=== PATIENT | female | born 1940 | race Caucasian/White ===

== ENCOUNTER → 2016-10-07 | Outpatient (CLI) | payer MEDICARE ==
[2016-10-07 11:03] LABS: Anion Gap 14 mmol/L; Calcium 9.2 mg/dL (8.4-10.2); Carbon Dioxide 20 mmol/L (22-30); Chloride 110 mmol/L (98-107); Cholesterol 143 mg/dL (<200); Glucose 97 mg/dL (74-99); HDL Cholesterol 51 mg/dL (40-60); Non-African American GFR(MDRD) >60 (>60 ml/min/1.73 sqM); Sodium 144 mmol/L (137-145); Total Bilirubin 0.9 mg/dL (0.2-1.3); Triglycerides 148 mg/dL (<150)
[2016-10-07 11:32] LABS: AST 41 U/L (14-36); Blood Urea Nitrogen 18 mg/dL (7-17); Potassium 4.6 mmol/L (3.5-5.1); Total Protein 7.7 g/dL (6.3-8.2)
[2016-10-07 11:33] LABS: ALT 27 U/L (9-52); Alkaline Phosphatase 60 U/L (38-126)
[2016-10-07 11:48] LABS: Hemoglobin A1C 6.1 % (4.2-6.1)
== END | disposition home or self-care (01) ==
LOC: LABWHC1 08:45
PROVIDERS: ATTEND Internal Medicine Interventional Cardiology
DX: E78.2 Mixed hyperlipidemia (principal); E11.9 Type 2 diabetes mellitus without complications
CPT/HCPCS: 36415; 80053; 80061; 82043; 83036

== ENCOUNTER → 2017-03-09 | Outpatient (CLI) | payer MEDICARE ==
[2017-03-09 10:02] LABS: ALT 32 U/L (9-52); AST 23 U/L (14-36); Cholesterol 156 mg/dL (<200); HDL Cholesterol 48 mg/dL (40-60)
== END | disposition home or self-care (01) ==
LOC: LABWHC1 08:38
PROVIDERS: ATTEND Internal Medicine Interventional Cardiology
DX: E78.2 Mixed hyperlipidemia (principal)
CPT/HCPCS: 36415; 80061; 84450; 84460

== ENCOUNTER → 2017-10-05 | Outpatient (CLI) | payer MEDICARE ==
[2017-10-05 10:48] LABS: ALT 22 U/L (9-52); AST 27 U/L (14-36); Cholesterol 140 mg/dL (<200); HDL Cholesterol 43 mg/dL (40-60); LDL Cholesterol,Calculated 65 mg/dL (0-99); Triglycerides 158 mg/dL (<150)
== END | disposition home or self-care (01) ==
LOC: LABWHC1 09:50
PROVIDERS: ATTEND Internal Medicine Interventional Cardiology
DX: E78.2 Mixed hyperlipidemia (principal)
CPT/HCPCS: 36415; 80061; 84450; 84460

== ENCOUNTER → 2017-10-26 | Outpatient (CLI) | payer MEDICARE ==
--- NOTE | 2017-10-27 13:30 | MM ---
Reason for exam: screening (asymptomatic). Last mammogram was performed 1 year and 6 months ago. History: Patient is postmenopausal. Family history of premenopausal breast cancer in mother at age 30. Stereotactic core biopsy of the right breast, February 20, 2004. Excisional biopsy of the right breast, 2003. Took estrogen beginning at age 37. Physical Findings: A clinical breast exam by your physician is recommended on an annual basis and results should be correlated with mammographic findings. MG 3D Screening Mammo W/Cad Bilateral CC and MLO view(s) were taken. Prior study comparison: April 23, 2016, bilateral MG screening mammo w CAD. April 21, 2015, bilateral MG screening mammo w CAD. The breast tissue is heterogeneously dense. This may lower the sensitivity of mammography. There is chronic nodularity bilaterally. No suspicious abnormality. Right breast post operative change. No significant changes when compared with prior studies. ASSESSMENT: Benign, BI-RAD 2 RECOMMENDATION: Routine screening mammogram of both breasts in 1 year. Manage on a clinical basis. Clinical management of nonfocal breast pain and size asymmetry if there is a focal abnormality diagnostic exam and ultrasound are recommended.
== END | disposition home or self-care (01) ==
LOC: RADMAMWWP 14:27
PROVIDERS: ATTEND Internal Medicine
DX: Z12.31 Encounter for screening mammogram for malignant neoplasm of breast (principal)
CPT/HCPCS: 77063; 77067

== ENCOUNTER → 2018-02-24 | Outpatient (CLI) | payer MEDICARE ==
[2018-02-24 12:04] LABS: Albumin 4.2 g/dL (3.5-5.0); Calcium 9.8 mg/dL (8.4-10.2); Potassium 4.8 mmol/L (3.5-5.1); Total Bilirubin 0.5 mg/dL (0.2-1.3); Total Protein 7.2 g/dL (6.3-8.2)
== END ==
LOC: LABWHC1 09:41
PROVIDERS: ATTEND Internal Medicine Interventional Cardiology
DX: E78.2 Mixed hyperlipidemia (principal)
CPT/HCPCS: 36415; 80053; 80061

== ENCOUNTER → 2018-10-04 | Outpatient (CLI) | payer MEDICARE ==
[2018-10-04 15:55] LABS: LDL Cholesterol,Calculated 57.8 mg/dL (0.0-131.0); VLDL Calculation 22.2 mg/dL (5.00-40.00)
== END | disposition home or self-care (01) ==
LOC: LABWHC1 09:12
PROVIDERS: ATTEND Internal Medicine Interventional Cardiology
DX: E78.2 Mixed hyperlipidemia (principal)
CPT/HCPCS: 36415; 80061; 84450; 84460

== ENCOUNTER 2018-11-02 12:40 | Day surgery (SDC) | payer MEDICARE ==
[2018-11-01 09:58] VITALS: BMI 32.1
[~2018-11-02 12:40] MED LIST: LACTATED RINGERS 1,000 ML IV SCH; LIDOCAINE 1% 20 ML VIAL (10MG/ML) FOR IV START INTRADERMA PRN
[2018-11-02] MEDS ORDERED: LIDOCAINE 1% INJ 10MG/ML (20 ML MDV) ONE (14:00)
[2018-11-02] MEDS ORDERED: PROPOFOL 10 MG/ML 20 ML VIAL IV ONE (14:00)
--- NOTE | 2018-11-02 14:38 | P.PCN ---
Date of Procedure: 11/02/18 Description of Procedure: BRIEF HISTORY: Patient is a 78-year-old pleasant female scheduled for an elective colonoscopy as a part of positive stool testing performed and screening. The patient reports that her last colonoscopy was approximately 15 years ago at which time polyps were removed. She denies any hematochezia or melena. She does report a family history of colon cancer in her grandfather. She does report loose stool which occurred a few months ago and was treated with [id number] Imodium with improvement in her symptoms. PROCEDURE PERFORMED: Colonoscopy with biopsy. PREOPERATIVE DIAGNOSIS: Change in bowel habits, diarrhea, last colonoscopy a few years ago, personal history of colon polyps. ESTIMATED BLOOD LOSS: Minimal. IV sedation per Anesthesia. PROCEDURE: After informed consent was obtained, the patient, was brought into the endoscopy unit. IV sedation was administered by Anesthesia under continuous monitoring. Digital rectal examination was normal. Initially the Olympus CF-190 flexible video colonoscope was then inserted in the rectum, gradually advanced into the cecum without any difficulty. Careful examination was performed as the scope was gradually being withdrawn. The terminal ileum was intubated and appeared normal. Ileocecal valve and the appendiceal orifice were visualized and appeared normal. Prep was excellent. Mucosa of the cecum, ascending colon, transverse colon, descending colon, sigmoid colon, and rectum appeared normal, with random biopsies taken of the right colon, transverse colon and left colon in the setting of recent diarrhea. Left-sided diverticulosis was noted and mild internal hemorrhoids were seen. Retroflexion was performed in the rectum and no lesions were seen. The patient tolerated the procedure well. IMPRESSION: Normal-appearing colon from rectum to cecum, with random biopsies of the right colon, left colon and transverse colon in the setting of recent diarrhea. Diverticulosis. Mild internal hemorrhoids. RECOMMENDATIONS: Findings of this examination were discussed with the patient her . Okay to resume diet. Would recommend high-fiber diet in the setting of diverticulosis. Await pathology from biopsies. Recommendation is for repeat colonoscopy in 5 years in the setting of history of colonic polyps.
[2018-11-02 14:45] VITALS: RESP 16
[2018-11-02 15:03] VITALS: BP 124/76; PULSE 66
== END 2018-11-02 15:05 | disposition home or self-care (01) ==
LOC: ORWHC2ENDO 12:40
PROVIDERS: ATTEND Internal Medicine
DX: K57.30 Diverticulosis of large intestine without perforation or abscess without bleeding (principal); Z86.010 Personal history of colon polyps; K64.8 Other hemorrhoids; Z87.891 Personal history of nicotine dependence; Z80.0 Family history of malignant neoplasm of digestive organs; E11.51 Type 2 diabetes mellitus with diabetic peripheral angiopathy without gangrene; E07.9 Disorder of thyroid, unspecified; I10 Essential (primary) hypertension; E78.5 Hyperlipidemia, unspecified; Z79.84 Long term (current) use of oral hypoglycemic drugs; Z79.1 Long term (current) use of non-steroidal anti-inflammatories (NSAID); Z79.82 Long term (current) use of aspirin; Z79.890 Hormone replacement therapy; Z79.899 Other long term (current) drug therapy
CPT/HCPCS: 88305; 45380; J2001; J2704

== ENCOUNTER 2019-01-22 13:53 | Observation (INO) | payer MEDICARE ==
[2019-01-22] MEDS ORDERED: NITROGLYCERIN SL TABS 0.4 MG TAB SUBLINGUAL STA (14:45)
[2019-01-22] MEDS ORDERED: ASPIRIN 81 MG PO STA (14:45)
--- NOTE | 2019-01-22 14:57 | ED ---
Chest Pain HPI - General Source: patient Mode of arrival: ambulatory Limitations: no limitations <Sidney Roy - Last Filed: 01/22/19 16:52> <Amanda York - Last Filed: 01/29/19 20:28> - General Chief Complaint: Chest Pain Stated Complaint: CHEST PRESSURE UPPER BACK PAIN, SOB, NAUSEA Time Seen by Provider: 01/22/19 14:28 - History of Present Illness Initial Comments: Patient is 78-year-old female with a history of an ND is presenting to emergency Department with chief complaint of chest pain. Patient reports she developed thoracic pain approximately 7 days ago which has now transformed to chest pressure. Patient reports the back pain is positional exacerbated when laying supine. Patient reports substernal, nonexertional, nonreproducible chest pressure. Patient reports the onset of chest pressure was gradual the started 4 days ago.. Patient denies any alleviating or aggravating factors. Patient denies any headaches, syncope or diaphoresis. Patient denies one-sided weakness or paresthesias. Patient reports that she has an aortic stent. Patient denies any abdominal pain patient denies any nausea or vomiting. Patient denies taking medication to alleviate the symptoms. (Sidney Roy) - Related Data Home Medications Medication Instructions Recorded Confirmed Aspirin 325 mg PO HS 11/01/18 01/22/19 Atorvastatin [Lipitor] 40 mg PO DAILY 11/01/18 01/22/19 Robbie/D3/Mag11/Zinc/[employer] Balloon/[facility]/Bor 1 tab PO DAILY@1200 11/01/18 01/22/19 [Caltrate 600+D Plus Tablet] Enalapril Maleate [Vasotec] 5 mg PO BID 11/01/18 01/22/19 Furosemide [Lasix] 40 mg PO DAILY 11/01/18 01/22/19 Levothyroxine Sodium [Synthroid] 100 mcg PO DAILY 11/01/18 01/22/19 Metoprolol Tartrate [Lopressor] 50 mg PO DAILY 11/01/18 01/22/19 Multivitamins, Thera [Multivitamin 1 tab PO DAILY@1200 11/01/18 01/22/19 (formulary)] amLODIPine [Norvasc] 5 mg PO HS 11/01/18 01/22/19 metFORMIN HCL 500 mg PO BID 11/01/18 01/22/19 Allergies Allergy/AdvReac Type Severity Reaction Status Date / Time No Known Allergies Allergy Verified 01/22/19 14:42 Review of Systems ROS Other: All systems not noted in ROS Statement are negative. <Sidney Roy - Last Filed: 01/22/19 16:52> ROS Other: All systems not noted in ROS Statement are negative. <Amanda York Yvonne - Last Filed: 01/29/19 20:28> ROS Statement: Those systems with pertinent positive or pertinent negative responses have been documented in the HPI. EKG Findings - EKG Comments: EKG Findings:: Normal sinus rhythm with first-degree AV block. Ventricular rate 64, OR interval 216, QRS duration 90, QT/QTc 428/441, P-R-T axes 46 6 26 <AngellabrodykitAyano - Last Filed: 01/22/19 16:52> Past Medical History Past Medical History: Diabetes Mellitus, Hyperlipidemia, Hypertension, Thyroid Disorder History of Any Multi-Drug Resistant Organisms: None Reported Past Surgical History: Appendectomy, Breast Surgery, Hysterectomy Additional Past Surgical History / Comment(s): AORTIC STENT, TOTAL LEFT KNEE, LASER SURGERY- EYE, CATARACT SURGERY, BREAST BIOSY RIGHT BREAST Past Anesthesia/Blood Transfusion Reactions: No Reported Reaction Past Psychological History: No Psychological Hx Reported Smoking Status: Former smoker Past Alcohol Use History: None Reported Past Drug Use History: Unable to Obtain - Past Family History Mother Family Medical History: No Reported History <Sidney Roy - Last Filed: 01/22/19 16:52> General Exam Limitations: no limitations General appearance: alert, in no apparent distress, obese Head exam: Present: atraumatic, normocephalic, normal inspection Eye exam: Present: normal appearance, PERRL, EOMI Pupils: Present: normal accommodation ENT exam: Present: normal exam, normal oropharynx, mucous membranes moist, TM's normal bilaterally, normal external ear exam Neck exam: Present: normal inspection, full ROM. Absent: tenderness Respiratory exam: Present: normal lung sounds bilaterally. Absent: wheezes Cardiovascular Exam: Present: regular rate, normal rhythm, normal heart sounds GI/Abdominal exam: Present: soft, normal bowel sounds. Absent: tenderness, guarding, rebound Extremities exam: Present: normal inspection, full ROM, normal capillary refill, other (+2 dorsalis pedis and posterior tibialis bilaterally.). Absent: calf tenderness (Negative Homans bilaterally) Back exam: Present: normal inspection, full ROM, paraspinal tenderness (Left thoracic paraspinal tenderness). Absent: CVA tenderness (R), CVA tenderness (L) Neurological exam: Present: alert, oriented X3 Psychiatric exam: Present: normal affect, normal mood Skin exam: Present: warm, intact, normal color <Sidney Roy - Last Filed: 01/22/19 16:52> Course Vital Signs 01/22/19 01/22/19 01/22/19 13:59 14:52 15:00 Temperature 98 F Pulse Rate 67 54 L Respiratory 18 32 H 11 L Rate Blood Pressure 138/77 133/64 O2 Sat by Pulse 94 L 97 Oximetry 01/22/19 01/22/19 01/22/19 15:30 16:00 16:30 Temperature Pulse Rate 55 L 57 L Respiratory 23 14 Rate Blood Pressure 136/84 152/70 130/71 O2 Sat by Pulse 86 L 95 78 L Oximetry 01/22/19 01/22/19 01/22/19 17:00 17:30 17:54 Temperature Pulse Rate 50 L 18 L Respiratory 11 L 64 H Rate Blood Pressure 110/74 O2 Sat by Pulse 96 97 97 Oximetry 01/22/19 01/23/19 23:00 01:08 Temperature Pulse Rate 56 L 56 L Respiratory 19 17 Rate Blood Pressure 153/75 152/65 O2 Sat by Pulse 98 97 Oximetry Chest Pain [facility] [place] - Differential Diagnosis ACS <Sidney Roy - Last Filed: 01/22/19 16:52> <Amanda York - Last Filed: 01/29/19 20:28> - [facility] [place] Patient is 78-year-old female with history of previous heart attack is presenting to emergency Department with a chief complaint of back pain and chest pain. I suspect the back pain to have a muscular skeletal etiology. The pain is exacerbated in certain anatomical positions. Patient does have a substernal, constant chest pressure that is not exacerbated or alleviated with rest. EKGs indicative of a first-degree AV block with a normal sinus rhythm. CBC, CMP and troponins are unremarkable. Patient will be admitted for serial troponins. She has a HEART score 5. Case discussed with Dr. York. Chest x-ray is negative for acute pathologies. Admitting physician is Dr. Curtis. Consult cardiology. (Sidney Roy) I was available for consultation in the emergency department. The history and physical exam were done by the midlevel provider. I was consulted for this patient's care. I reviewed the case midlevel provider and based on their presentation of the patient, I agree with the assessment, medical decision making and plan of care as documented. Chart was dictated using Nubee software. Attempts were made to correct any dictation errors however some typographical errors may persist. (Amanda York) Disposition Is patient prescribed a controlled substance at d/c from ED?: No Time of Disposition: 16:52 <Sidney Roy - Last Filed: 01/22/19 16:52> <Amanda York - Last Filed: 01/29/19 20:28> Clinical Impression: Chest pain Disposition: ADMITTED IP TO THIS HOSP Condition: Fair
[2019-01-22 15:25] LABS: Basophils % (A) 0 %; Eosinophils # (A) 0.3 k/uL (0-0.7); Eosinophils % (A) 4 %; HCT 37.6 % (34.0-46.0); HGB 12.3 gm/dL (11.4-16.0); Lymphocytes # (A) 1.4 k/uL (1.0-4.8); Lymphocytes % (A) 21 %; MCH 30.6 pg (25.0-35.0); MCHC 32.7 g/dL (31.0-37.0); MCV 93.6 fL (80.0-100.0); Mean Platelet Volume 7.4; Monocytes # (A) 0.3 k/uL (0-1.0); Monocytes % (A) 5 %; Neutrophils # (A) 4.4 k/uL (1.3-7.7); Neutrophils % (A) 68 %; Platelet Count 229 k/uL (150-450); RBC 4.02 m/uL (3.80-5.40); RDW 13.2 % (11.5-15.5); WBC 6.5 k/uL (3.8-10.6)
[2019-01-22 15:38] LABS: Albumin 4.3 g/dL (3.5-5.0); Calcium 9.3 mg/dL (8.4-10.2); Magnesium 1.8 mg/dL (1.6-2.3); Potassium 4.1 mmol/L (3.5-5.1); Total Bilirubin 0.3 mg/dL (0.2-1.3); Total Protein 7.2 g/dL (6.3-8.2)
[2019-01-22 15:41] LABS: INR 0.9 (<1.2); Partial Thromboplastin Time 23.4 sec (22.0-30.0); Prothrombin Time 10.1 sec (9.0-12.0)
--- NOTE | 2019-01-22 15:50 | XR ---
EXAMINATION TYPE: XR chest 2V DATE OF EXAM: 01/22/2019 COMPARISON: NONE TECHNIQUE: PA and lateral views submitted. HISTORY: Chest pain FINDINGS: The lungs are clear and there is no pneumothorax, pleural effusion, or focal pneumonia. Atheroscler otic change aorta. Biapical pleural thickening. Hyperinflation noted. Hypertrophic change of the spin e with degenerative changes. IMPRESSION: 1. No acute process. 2. Correlate for COPD.
[2019-01-22] MEDS ORDERED: ONDANSETRON 4 MG/2 ML VIAL IVP PRN (16:49)
[2019-01-22] MEDS ORDERED: NALOXONE 0.4 MG/ML 1 ML VIAL IV PRN (16:49)
[2019-01-22] MEDS ORDERED: ACETAMINOPHEN TAB 325 MG TAB PO PRN (16:49)
[2019-01-22] MEDS ORDERED: MORPHINE SULFATE 4 MG/ML SYRINGE IV PRN (16:49)
[2019-01-22] MEDS ORDERED: amLODIPine 5 MG TAB PO SCH (23:30)
--- NOTE | 2019-01-22 23:32 | P.HPIM ---
History of Present Illness H&P Date: 01/22/19 Chief Complaint: Chest discomfort exertional dyspnea 78-year-old female with history of diabetes mellitus and hypertension hyperlipidemia Patient presents to the hospital with 1 week history of worsening back pain. She reports that she had the back pain since August of this year however is got worse over the past week with attacks where she would feel chest pressure espec ially when she wakes up in the middle of the night trying to go to the bathroom she gets pounding chest pressure substernal nonradiating rated as 8-9 out of 10 in severity improves with resting gets worse every time she gets up to go to the bathroom in the middle of the night associated with some shortness of breath and feeling sick denies any sweating or palpitations. She also reports some back pain sharp in nature 8 out of 10 in severity between shoulder blades gets worse with movement she can't get comfortable sometimes at night sleeping on it makes it worse. She denies any recent traumas or falls she reports that this been going on regarding the back pain for at least 4 months now however got worse recently. The true reason for her being in the hospital is few days ago one of her close friends had similar symptoms and was eventually diagnosed with coronary artery disease so this patient got concerned and decided to come to the hospital for evaluation In the ED initial workup EKG showed first-degree AV block, labs were unremarkable vital signs were stable chest x-ray showed no acute process. Patient admitted for atypical chest pain rule out Review of Systems Pertinent positives as noted in HPI. All other systems were reviewed and are negative Past Medical History Past Medical History: Diabetes Mellitus, Hyperlipidemia, Hypertension, Thyroid Disorder History of Any Multi-Drug Resistant Organisms: None Reported Past Surgical History: Appendectomy, Breast Surgery, Hysterectomy Additional Past Surgical History / Comment(s): AORTIC STENT, TOTAL LEFT KNEE, LASER SURGERY- EYE, CATARACT SURGERY, BREAST BIOSY RIGHT BREAST Past Anesthesia/Blood Transfusion Reactions: No Reported Reaction Past Psychological History: No Psychological Hx Reported Smoking Status: Former smoker Past Alcohol Use History: None Reported Past Drug Use History: Unable to Obtain - Past Family History Mother Family Medical History: No Reported History Additional Family Medical History / Comment(s): No history of premature CAD and her family Medications and Allergies Home Medications Medication Instructions Recorded Confirmed Type Aspirin 325 mg PO HS 11/01/18 01/22/19 History Atorvastatin [Lipitor] 40 mg PO DAILY 11/01/18 01/22/19 History Robbie/D3/Mag11/Zinc/Hospital Plan Administrator/[facility]/Bor 1 tab PO DAILY@1200 11/01/18 01/22/19 History [Caltrate 600+D Plus Tablet] Enalapril Maleate [Vasotec] 5 mg PO BID 11/01/18 01/22/19 History Furosemide [Lasix] 40 mg PO DAILY 11/01/18 01/22/19 History Levothyroxine Sodium [Synthroid] 100 mcg PO DAILY 11/01/18 01/22/19 History Metoprolol Tartrate [Lopressor] 50 mg PO DAILY 11/01/18 01/22/19 History Multivitamins, Thera [Multivitamin 1 tab PO DAILY@1200 11/01/18 01/22/19 History (formulary)] amLODIPine [Norvasc] 5 mg PO HS 11/01/18 01/22/19 History metFORMIN HCL 500 mg PO BID 11/01/18 01/22/19 History Allergies Allergy/AdvReac Type Severity Reaction Status Date / Time No Known Allergies Allergy Verified 01/22/19 14:42 Physical Exam Vitals: Vital Signs Temp Pulse Resp BP Pulse Ox 01/22/19 17:54 18 L 64 H 110/74 97 01/22/19 17:30 50 L 11 L 97 01/22/19 17:00 96 01/22/19 16:30 130/71 78 L 01/22/19 16:00 57 L 14 152/70 95 01/22/19 15:30 55 L 23 136/84 86 L 01/22/19 15:00 54 L 11 L 133/64 97 01/22/19 14:52 32 H 01/22/19 13:59 98 F 67 18 138/77 94 L Intake and Output 01/22/19 01/22/19 01/22/19 06:59 14:59 22:59 Other: Weight 77.111 kg Constitutional: No acute distress, conversant, pleasant Eyes: Anicteric sclerae, moist conjunctiva, no lid-lag Pupils equal round reactive to light ENMT: NC/AT Oropharynx clear, no erythema, no exudates Neck: Supple, FROM, no masses, or JVD No carotid bruits No thyromegaly Lungs: Clear to auscultation Clear to percussion Normal respiratory effort, no accessory muscle use Cardiovascular: Heart regular in rate and rhythm, No murmurs, gallops, or rubs No peripheral edema Abdominal: Soft Nontender, no guarding, rebound or rigidity Abdomen moving with respiration Normoactive bowel sounds No hepatomegaly, No splenomegaly No palpable mass No abdominal wall hernia noted Skin: Normal temperature, tone, texture, turgor No induration No subcutaneous nodules No rash, lesions No ulcers Extremities: No digital cyanosis No clubbing Pedal pulses intact and symmetrical Radial pulses intact and symmetrical No calf tenderness Psychiatric: Alert and oriented to person, place and time Appropriate affect fair judgment Neuro Muscles Strength 5/5 in all 4 extremities Sensation to light touch grossly present throughout Cranial nerves II-XII grossly intact No focal sensory deficits Lymphatics: no palpable cervical or supraclavicular , or inguinal lymph nodes Pain is reproducible by palpating the back at level of T10, also reproducible by palpating the left upper chest, inspecting the skin there is no changes compared to the skin surrounding it, no warmth to the touch no swelling no bruising. Results CBC & Chem 7: 01/22/19 15:01 01/22/19 15:01 Labs: Abnormal Lab Results - Last 24 Hours (Table) 01/22/19 Range/Units 15: BUN 19 H (7-17) mg/dL Glucose 100 H (74-99) mg/dL Assessment and Plan Assessment: 78-year-old female with history of hypertension diabetes and hypothyroid admitted under observation with anticipated length of stay less than 48 hours due to atypical chest pain to rule out ACS Plan: Atypical chest pain rule out ACS Cardiac monitoring Trend cardiac enzymes Aspirin, statin, Lopressor Cardiology consult Back pain most likely musculoskeletal related to degenerative joint disease of the spine consider outpatient follow-up with PCP Chronic conditions Diabetes mellitus on oral hypoglycemics, continue on insulin sliding scale Hyperlipidemia continue statin Hypertension continue Norvasc and Vasotec and Lopressor Hypothyroid continue with Synthroid DVT prophylaxis heparin subcu 3 times a day Surrogate decision-maker: CODE STATUS: Full code Discussed with: Patient, ER, *RN Anticipated discharge: Less than [address]: Home A total of 60 minutes was spent on the care of this complex patient more than 50% of the time was spent in counseling and care coordination.
[2019-01-23 02:00] VITALS: BMI 31.6
[2019-01-23] MEDS: IBUPROFEN 400 MG TAB PO PRN ×2 (02:05→09:46)
[2019-01-23] MEDS: HEPARIN SODIUM,PORCINE 5,000 UNIT/ML 1 ML VIAL SQ SCH ×3 (02:05→14:32)
[2019-01-23] MEDS: INSULIN ASPART (NovoLOG) 100 UNIT/ML VIAL SQ SCH ×3 (06:30→14:33)
[2019-01-23] MEDS ORDERED: LEVOTHYROXINE 100 MCG TAB PO SCH (06:30)
[2019-01-23 06:46] LABS: Glucose,Whole Blood 98 mg/dL (75-99)
[2019-01-23] MEDS ORDERED: ATORVASTATIN 40 MG TAB PO SCH (09:00)
[2019-01-23] MEDS ORDERED: METOPROLOL TARTRATE 50 MG TAB PO SCH (09:00)
[2019-01-23] MEDS ORDERED: LISINOPRIL 20 MG TAB PO SCH (09:00)
--- NOTE | 2019-01-23 09:32 | P.CRDCN ---
History of Present Illness Consult date: 01/23/19 Requesting physician: Otto Curtis Reason for Consult (text): Back pain Chief complaint: Scapula pain History of present illness: This is a 78-year-old female who follows with Dr. Del Cid in the office. Patient states she has history of prior myocardial infarction, had a heart cath done in multiple years ago she thinks it was around 1997, did not have any intervention at that time, she does state that she has a peripheral stent in the past, she has history of hypertension, diabetes, hyperlipidemia, she is a nonsmoker, and rarely drinks alcohol. She presents to the hospital wi th symptoms of upper back and scapular discomfort which she states she's been having constant for approximate month to 2 months duration. Yesterday the patient had nausea, felt as though she may throw up, was concerned she may be having a heart attack and came to the emergency room for further evaluation and treatment. Patient also states that over the past few days, with minimal exertion she notices herself to be quite short of breath. Even just walking to the bathroom and back to her bed, she states that she feels it's hard to breathe. Chest x-ray on presentation showed no acute process. EKG shows normal sinus rhythm with first-degree AV block. White blood cell count 6.5, hemoglobin 12.3, platelet count 229. D-dimer 0.5. Sodium 141, potassium 4.1, BUN 19, creatinine 1.0. Magnesium 1.8, troponins negative 3. At the time of my examination this morning, she continues to have discomfort in her upper back and scapular region, similar to what she's been having for the past month or so, denies any nausea at present. Past Medical History Past Medical History: Diabetes Mellitus, Hyperlipidemia, Hypertension, Myocardial Infarction (ND), Thyroid Disorder Additional Past Medical History / Comment(s): "small heart attack in 1997" Last Myocardial Infarction Date:: 1997 History of Any Multi-Drug Resistant Organisms: None Reported Past Surgical History: Appendectomy, Breast Surgery, Hysterectomy Additional Past Surgical History / Comment(s): AORTIC STENT, TOTAL LEFT KNEE, LASER SURGERY- EYE, CATARACT SURGERY, BREAST BIOSY RIGHT BREAST Past Anesthesia/Blood Transfusion Reactions: No Reported Reaction Past Psychological History: No Psychological Hx Reported Smoking Status: Former smoker Past Alcohol Use History: None Reported Additional Past Alcohol Use History / Comment(s): STARTED SMOKING AT AGE 33 QUIT 1998 SMOKED 1/4 PPD Past Drug Use History: Unable to Obtain - Past Family History Mother Family Medical History: No Reported History Additional Family Medical History / Comment(s): No history of premature CAD and her family Medications and Allergies Home Medications Medication Instructions Recorded Confirmed Type Aspirin 325 mg PO HS 11/01/18 01/22/19 History Atorvastatin [Lipitor] 40 mg PO DAILY 11/01/18 01/22/19 History Robbie/D3/Mag11/Zinc/Drop [employer] Laborer/[facility]/Bor 1 tab PO DAILY@1200 11/01/18 01/22/19 History [Caltrate 600+D Plus Tablet] Enalapril Maleate [Vasotec] 5 mg PO BID 11/01/18 01/22/19 History Furosemide [Lasix] 40 mg PO DAILY 11/01/18 01/22/19 History Levothyroxine Sodium [Synthroid] 100 mcg PO DAILY 11/01/18 01/22/19 History Metoprolol Tartrate [Lopressor] 50 mg PO DAILY 11/01/18 01/22/19 History Multivitamins, Thera [Multivitamin 1 tab PO DAILY@1200 11/01/18 01/22/19 History (formulary)] amLODIPine [Norvasc] 5 mg PO HS 11/01/18 01/22/19 History metFORMIN HCL 500 mg PO BID 11/01/18 01/22/19 History Allergies Allergy/AdvReac Type Severity Reaction Status Date / Time No Known Allergies Allergy Verified 01/22/19 14:42 Physical Exam Vitals: Vital Signs Temp Pulse Pulse Resp BP BP Pulse Ox 01/23/19 01:40 98.1 F 58 L 16 155/75 95 01/23/19 01:08 56 L 17 152/65 97 01/22/19 23:00 56 L 19 153/75 98 01/22/19 17:54 18 L 64 H 110/74 97 01/22/19 17:30 50 L 11 L 97 01/22/19 17:00 96 01/22/19 16:30 130/71 78 L 01/22/19 16:00 57 L 14 152/70 95 01/22/19 15:30 55 L 23 136/84 86 L 01/22/19 15:00 54 L 11 L 133/64 97 01/22/19 14:52 32 H 01/22/19 13:59 98 F 67 18 138/77 94 L Intake and Output 01/22/19 01/23/19 01/23/19 22:59 06:59 14:59 Other: Voiding Method Toilet # Voids 1 Weight 78.471 kg PHYSICAL EXAMINATION: GENERAL: 78-year-old female in no acute distress at the time of my examination HEENT: Head is atraumatic, normocephalic. Pupils equal, round. Sclera anicteric. Conjunctiva are clear. Mucous membranes of the mouth are moist. Neck is supple. There is no elevated jugular venous pressure. No carotid bruit is heard. HEART EXAMINATION: Heart S1 S2 1 systolic murmur is heard CHEST EXAMINATION: Lungs are clear to auscultation and precussion. No chest wall tenderness is noted on palpation or with deep breathing. ABDOMEN: Soft, nontender. Bowel sounds are heard. No organomegaly noted. EXTREMITIES: 2+ peripheral pulses with no evidence of peripheral edema and no calf tenderness noted. NEUROLOGIC patient is awake, alert and oriented 3. . Results 01/22/19 15:01 01/22/19 15:01 Cardiac Enzymes 01/22/19 01/22/19 01/22/19 Range/Units 15:01 15:01 20:51 AST 24 (14-36) U/L Troponin I <0.012 <0.012 (0.000-0.034) ng/mL 01/23/19 Range/Units 03:04 AST (14-36) U/L Troponin I <0.012 (0.000-0.034) ng/mL Coagulation 01/22/19 Range/Units 15:01 PT 10.1 (9.0-12.0) sec APTT 23.4 (22.0-30.0) sec CBC 01/22/19 Range/Units 15:01 WBC 6.5 (3.8-10.6) k/uL RBC 4.02 (3.80-5.40) m/uL Hgb 12.3 (11.4-16.0) gm/dL Hct 37.6 (34.0-46.0) % Plt Count 229 (150-450) k/uL Comprehensive Metabolic Panel 01/22/19 Range/Units 15:01 Sodium 141 (137-145) mmol/L Potassium 4.1 (3.5-5.1) mmol/L Chloride 103 (98-107) mmol/L Carbon Dioxide 26 (22-30) mmol/L BUN 19 H (7-17) mg/dL Creatinine 1.02 (0.52-1.04) mg/dL Glucose 100 H (74-99) mg/dL Calcium 9.3 (8.4-10.2) mg/dL AST 24 (14-36) U/L ALT 24 (9-52) U/L Alkaline Phosphatase 66 (38-126) U/L Total Protein 7.2 (6.3-8.2) g/dL Albumin 4.3 (3.5-5.0) g/dL Current Medications Generic Name Dose Route Start Last Admin Trade Name Freq PRN Reason Stop Dose Admin Acetaminophen 650 mg 01/22/19 16:49 Tylenol Tab PO Q6HR PRN Mild Pain or Fever > 100.5 Amlodipine Besylate 5 mg 01/22/19 23:30 01/22/19 23:50 Norvasc PO 5 mg HS CHRIS Administration Aspirin 325 mg 01/23/19 21:00 Aspirin PO HS [facility] Atorvastatin Calcium 40 mg 01/23/19 09:00 Lipitor PO DAILY [facility] Heparin Sodium (Porcine) 5,000 unit 01/23/19 00:00 01/23/19 02:05 Heparin SQ 5,000 unit Q8HR [facility] Administration Ibuprofen 400 mg 01/22/19 16:49 01/23/19 02:05 Motrin PO 400 mg Q6HR PRN Administration Mild Pain or Fever > 100.5 Insulin Aspart 0 unit 01/23/19 07:30 01/23/19 06:30 Novolog SQ Not Given [facility] Protocol Levothyroxine Sodium 100 mcg 01/23/19 06:30 01/23/19 06:35 Synthroid PO 100 mcg DAILY@0630 [facility] Administration Lisinopril 20 mg 01/23/19 09:00 Zestril PO DAILY [facility] Metoprolol Tartrate 50 mg 01/23/19 09:00 Lopressor PO DAILY [facility] Morphine Sulfate 4 mg 01/22/19 16:49 Morphine Sulfate (Inj) IV Q4HR PRN Severe Pain Naloxone HCl 0.2 mg 01/22/19 16:49 Narcan IV Q2M PRN Opioid Reversal Ondansetron HCl 4 mg 01/22/19 16:49 Zofran IVP Q8HR PRN Nausea And Vomiting Intake and Output 01/22/19 01/23/19 01/23/19 22:59 06:59 14:59 Other: Voiding Method Toilet # Voids 1 Weight 78.471 kg Patient Weight 01/24/19 06:59 Weight 78.471 kg 01/22/19 15:01 01/22/19 15:01 EKG Interpretations (text) EKG shows normal sinus rhythm with first-degree AV block. Assessment and Plan Plan: Assessment and plan #1 symptoms of upper back and scapular discomfort, with associated nausea and fairly new onset of exertional shortness of breath. Troponins are negative 3. EKG shows a normal sinus rhythm with no acute changes. #2 history of myocardial infarction in 1997, patient states she had a heart cath at that time, no intervention. #3 history of aortic stenting #4 hypertension #5 hyperlipidemia #6 diabetes #7 thyroid disorder #8 history of nicotine dependence, patient quit smoking in 1997 Plan We will obtain an echocardiogram with Doppler study. We will also obtain Dr. bethany le's most recent office note. Decrease aspirin to 81 mg daily. Recommend patient to undergo stress testing if one hasn't been done recently in the office. Further recommendations to follow. DNP note has been reviewed, I agree with a documented findings and plan of care. Patient was seen and examined.
[2019-01-23 10:27] VITALS: TEMP 97.6
[2019-01-23] MEDS ORDERED: DOBUTamine DRIP for NUC MED 500 MG in DEXTROSE/WATER 1 250ML.BAG IV ONE (11:30)
--- NOTE | 2019-01-23 13:48 | ECHOS ---
STRESS ECHOCARDIOGRAM DOBUTAMINE STRESS ECHO DATE OF SERVICE: 01/23/2019 INDICATIONS: Chest pain. MEDICATIONS: BASELINE HEART RATE: 60 BASELINE BLOOD PRESSURE: 128/67 MAXIMUM HEART RATE: 133 MAXIMUM BLOOD PRESSURE: 172/77 85% MPHR: 122 100% MPHR: 143 METS: MAXIMUM STAGE REACHED: TOTAL EXERCISE TIME: CLINICAL INFORMATION: The patient was given dobutamine infusion according to the standard protocol. Peak heart rate of 133 was achieved. Maximum blood pressure of 172/77 mmHg was noted. Resting EKG shows normal sinus rhythm with normal VT interval and QRS duration and normal ST-T waves. During dobutamine infusion about [address]-segment depression was noted. Occasional PACs were noted. The baseline echocardiographic images reveals normal left ventricular chamber size with normal left ventricular systolic function. At the peak dose of dobutamine infusion, normal increase in the wall thickness and contractility was noted. FINAL IMPRESSION: 1. This dobutamine stress echocardiographic study is negative for stress-induced ischemia. 2. EKG portion of the stress test shows a [address]-segment depression of uncertain clinical significance. Clinical correlation is suggested. 3. Occasional PACs are noted. MMODL / IJN: [id number] /
[2019-01-23 14:08] VITALS: BP 117/85; PULSE 77; RESP 18
--- NOTE | 2019-01-23 15:03 | P.DS ---
Providers Date of admission: 01/22/19 17:51 Expected date of discharge: 01/23/19 Attending physician: Zhou Elizalde MD Consults: 01/22/19 16:49 Consult Physician Stat Consulting Provider: Mario Del Cid Consult Reason/Comments: Chest pain Do you want consulting provider notified?: Yes Primary care physician: Jose F Botello - Discharge Diagnosis(es) (1) Non-cardiac chest pain Troponin times 3 were negative and dobutamine stress echo was done today, that was also reported as negative by Dr. Alvarado. Current Visit: Yes Status: Acute Priority: High (2) Hypertension, essential, benign Current Visit: Yes Status: Acute Priority: Medium (3) Hypothyroidism (acquired) Current Visit: Yes Status: Acute Priority: Medium (4) Diabetes mellitus type 2 in nonobese Current Visit: Yes Status: Acute Priority: Medium (5) DJD (degenerative joint disease) Current Visit: Yes Status: Acute Priority: Medium Hospital Course: 78-year-old female with history of DM-II, hypertension and hyperlipidemia who presents to the hospital with 1 week history of worsening back pain. She reports that she had the back pain since August of this year however is got worse over the past week with attacks where she would feel chest pressure especially when she wakes up in the middle of the night trying to go to the bathroom she gets pounding chest pressure substernal nonradiating rated as 8-9 out of 10 in severity improves with resting gets worse every time she gets up to go to the bathroom in the middle of the night associated with some shortness of breath and feeling sick denies any sweating or palpitations. She also reports some back pain sharp in nature 8 out of 10 in severity between shoulder blades gets worse with movement she can't get comfortable sometimes at night sleeping on it makes it worse. She denied any recent traumas or falls she reports that this been going on regarding the back pain for at least 4 months now however got worse recently. The true reason for her being in the hospital is few days ago one of her close friends had similar symptoms and was eventually diagnosed with coronary artery disease so this patient got concerned and decided to come to the hospital for evaluation In the ED initial workup EKG showed first-degree AV block, labs were unremarkable vital signs were stable chest x-ray showed no acute process. Patient was admitted for atypical chest pain, ACS ruled out with 3 negative troponins. She was referred to Cardiology team for further w/u and she under went to dobutamine stress echo today and that was also reported as negative with nonspecific EKG changes. Nurses reported that cardiology cleared patient for discharge home today. Patient was advised to follow with her primary care provider Dr. Botello in 1-2 days post discharge and resume care through his office. Pertinent Studies: Dobutamine stress echo done on . Patient Condition at Discharge: Fair Plan - Discharge Summary Discharge Rx Participant: No New Discharge Prescriptions: Continue Multivitamins, Thera [Multivitamin (formulary)] 1 tab PO DAILY@1200 Robbie/D3/Mag11/Zinc/Chemist Helper/[facility]/Bor [Caltrate 600+D Plus Tablet] 1 tab PO DAILY@1200 metFORMIN HCL 500 mg PO BID Aspirin 325 mg PO HS amLODIPine [Norvasc] 5 mg PO HS Levothyroxine Sodium [Synthroid] 100 mcg PO DAILY Enalapril Maleate [Vasotec] 5 mg PO BID Metoprolol Tartrate [Lopressor] 50 mg PO DAILY Furosemide [Lasix] 40 mg PO DAILY Atorvastatin [Lipitor] 40 mg PO DAILY Discharge Medication List Aspirin 325 mg PO HS 11/01/18 [History] Atorvastatin [Lipitor] 40 mg PO DAILY 11/01/18 [History] Robbie/D3/Mag11/Zinc/Chemist Helper/[facility]/Bor [Caltrate 600+D Plus Tablet] 1 tab PO DAILY@1200 11/01/18 [History] Enalapril Maleate [Vasotec] 5 mg PO BID 11/01/18 [History] Furosemide [Lasix] 40 mg PO DAILY 11/01/18 [History] Levothyroxine Sodium [Synthroid] 100 mcg PO DAILY 11/01/18 [History] Metoprolol Tartrate [Lopressor] 50 mg PO DAILY 11/01/18 [History] Multivitamins, Thera [Multivitamin (formulary)] 1 tab PO DAILY@1200 11/01/18 [History] amLODIPine [Norvasc] 5 mg PO HS 11/01/18 [History] metFORMIN HCL 500 mg PO BID 11/01/18 [History] Follow up Appointment(s)/Referral(s): Jose F Botello MD [Primary Care Provider] - 1-2 days Mario Del Cid MD [STAFF PHYSICIAN] - 02/19/19 4:00 pm (Tuesday appointment cancelled.) Patient Instructions/Handouts: Chest Pain (ED) Discharge Disposition: HOME SELF-CARE
[2019-01-23] MEDS ORDERED: ASPIRIN 325 MG TAB PO SCH (21:00)
[2019-01-23] MEDS ORDERED: ASPIRIN 81 MG PO SCH (21:00)
== END 2019-01-23 16:03 | disposition home or self-care (01) ==
LOC: EC 13:53 → 3SCARD 17:51
PROVIDERS: ADMIT Internal Medicine Geriatric Medicine; ATTEND Internal Medicine Geriatric Medicine
DX: R07.89 Other chest pain (principal); R06.02 Shortness of breath; R11.0 Nausea; M54.6 Pain in thoracic spine; M25.519 Pain in unspecified shoulder; R07.2 Precordial pain; R06.00 Dyspnea, unspecified; I25.2 Old myocardial infarction; I44.0 Atrioventricular block, first degree; E78.5 Hyperlipidemia, unspecified; E11.9 Type 2 diabetes mellitus without complications; E03.9 Hypothyroidism, unspecified; I10 Essential (primary) hypertension; M19.90 Unspecified osteoarthritis, unspecified site; Z79.82 Long term (current) use of aspirin; Z79.899 Other long term (current) drug therapy; Z79.84 Long term (current) use of oral hypoglycemic drugs; Z79.890 Hormone replacement therapy; Z87.891 Personal history of nicotine dependence; Z95.828 Presence of other vascular implants and grafts
CPT/HCPCS: 96372; 99285; 36415; 93005; 85379; 80053; 83735; 84484 ×2; 85025; 85610; 85730; 71046; G0378 ×2; C8930; J1250; J1644; 93351

== ENCOUNTER → 2019-01-31 | Outpatient (CLI) | payer MEDICARE ==
--- NOTE | 2019-02-01 14:25 | MM ---
Reason for exam: screening (asymptomatic). Last mammogram was performed 1 year and 3 months ago. History: Patient is postmenopausal. Family history of premenopausal breast cancer in mother at age 30. Stereotactic core biopsy of the right breast, February 20, 2004. Excisional biopsy of the right breast, 2003. Took estrogen beginning at age 37. Physical Findings: A clinical breast exam by your physician is recommended on an annual basis and results should be correlated with mammographic findings. MG 3D Screening Mammo W/Cad Bilateral CC and MLO view(s) were taken. Prior study comparison: October 26, 2017, bilateral MG 3d screening mammo w/cad. April 23, 2016, bilateral MG screening mammo w CAD. The breast tissue is heterogeneously dense. This may lower the sensitivity of mammography. Benign appearing bilateral calcifications. No suspicious abnormality. Right excisional biopsy change. No significant changes when compared with prior studies. ASSESSMENT: Benign, BI-RAD 2 RECOMMENDATION: Routine screening mammogram of both breasts in 1 year. Manage on a clinical basis with regard to intermittent, non-focal chronic left breast pain. If focal diagnostic exam recommended.
== END | disposition home or self-care (01) ==
LOC: RADMAMWWP 06:57
PROVIDERS: ATTEND Internal Medicine
DX: Z12.31 Encounter for screening mammogram for malignant neoplasm of breast (principal)
CPT/HCPCS: 77063; 77067

== ENCOUNTER → 2019-03-07 | Outpatient (CLI) | payer MEDICARE ==
--- NOTE | 2019-03-07 08:15 | US ---
EXAMINATION TYPE: US liver DATE OF EXAM: 03/07/2019 COMPARISON: NONE CLINICAL HISTORY: R07.9 Chest pain, R10.11 RUQ Pain. Intermittent right flank pain x couple months EXAM MEASUREMENTS: Liver Length: 13.7 cm Gallbladder Wall: 0.3 cm CBD: 0.6cm Right Kidney: 8.5 x 3.5 x 4.3 cm Pancreas: visualized portions wnl, limited by overlying midline bowel gas Liver: mildly course echogenicity, most commonly relating to mild degree hepatic steatosis. This sin its evaluation for underlying hepatic masses. Gallbladder: 0.6cm echogenic focus within neck, non mobile when patient rolled LLD, upper limits of normal thickness of the wall measuring 0.3 cm. Evidence for sonographic Adame's sign: yes CBD: Upper limits of normal measuring 0.6 cm Right Kidney: no hydronephrosis or masses seen IMPRESSION: 1. The common bile duct is upper limits of normal and there is a positive sonographic Adame's sign a s well as cholelithiasis. However no pericholecystic fluid is seen nor gallbladder wall thickening to confirm acute cholecystitis. Given the intermittent symptoms of biliary colic is suspected. Calculus in the gallbladder neck could be intermittently impacted. Surgical consultation is recommended. 2. Mild coarsened heterogenous echotexture of the hepatic parenchyma, which most commonly corresponds to hepatic steatosis and limits evaluation for underlying hepatic masses A Yellow level critical message alert has been initiated for Jose F Botello MD via the [employer] Critical Results System on 03/07/2019 8:12 AM. This message alert has been sent to Jose F Botello MD via the preferences provided by the clinician for the receipt of Radiology Critical Findings. Message ID [id number].
== END | disposition home or self-care (01) ==
LOC: RADUSWWP 06:57
PROVIDERS: ATTEND Internal Medicine
DX: K80.20 Calculus of gallbladder without cholecystitis without obstruction (principal)
CPT/HCPCS: 76705

== ENCOUNTER 2019-03-26 12:31 | Day surgery (SDC) | payer MEDICARE ==
[2019-03-21 12:29] VITALS: BMI 31.4
[~2019-03-26 12:31] MED LIST changes: +BUPIVACAINE (PF) 0.25% 30 ML VIAL SQ ONE; +DEXAMETHASONE SOD PHOSPHATE 10 MG/ML 1 ML VIAL IV ONE; +HEPARIN SODIUM,PORCINE 5,000 UNIT/ML 1 ML VIAL SQ ONE; +HYDROmorphone 0.5 MG/0.5 ML SYRINGE IVP PRN; -LIDOCAINE 1% 20 ML VIAL (10MG/ML) FOR IV START INTRADERMA PRN; +MIDAZOLAM 2 MG/2 ML VIAL IV PRN; +ONDANSETRON 4 MG/2 ML VIAL IVP ONE
[2019-03-26 13:11] LABS: Glucose,Whole Blood 103 mg/dL (75-99)
[2019-03-26] MEDS ORDERED: fentaNYL (PF) 50 MCG/ML 2 ML AMP ONE (14:48)
[2019-03-26] MEDS ORDERED: SUCCINYLCHOLINE CHLORIDE 100 MG/5 ML SYR IV ONE (14:48)
[2019-03-26] MEDS ORDERED: GLYCOPYRROLATE 0.2 MG/ML 2 ML VIAL ONE (14:48)
[2019-03-26] MEDS ORDERED: NEOSTIGMINE 1 MG/ML 10 ML VIAL ONE (14:48)
[2019-03-26] MEDS ORDERED: MIDAZOLAM 2 MG/2 ML VIAL ONE (14:48)
[2019-03-26] MEDS ORDERED: LIDOCAINE 1% INJ 10MG/ML (20 ML MDV) ONE (14:48)
[2019-03-26] MEDS ORDERED: PROPOFOL 10 MG/ML 20 ML VIAL IV ONE (14:48)
[2019-03-26] MEDS ORDERED: ROCURONIUM BROMIDE 10 MG/ML 10 ML VIAL IV ONE (14:48)
[2019-03-26] MEDS ORDERED: BUPIVACAINE (PF) 0.25% 30 ML VIAL SQ ONE ×4 (14:53→15:11)
[2019-03-26] MEDS ORDERED: traMADol 50 MG TAB PO PRN (15:50)
[2019-03-26] MEDS ORDERED: NALOXONE 0.4 MG/ML 1 ML VIAL IV PRN (15:50)
--- NOTE | 2019-03-26 15:51 | P.OP ---
Date of Procedure: 03/26/19 Procedure(s) Performed: PREOPERATIVE DIAGNOSIS: Chronic cholecystitis POSTOPERATIVE DIAGNOSIS: Same PROCEDURE: Laparoscopic cholecystectomy SURGEON: Radha EBL: Minimal see anesthesia record ANESTHESIA: Gen. COMPLICATIONS: None OPERATIVE PROCEDURE: The patient was brought and placed on the operating room table in the supine position. The patient was placed under general anesthesia at that time. The abdomen was prepped and draped in the usual sterile fashion. A small vertical infraumbilical incision was made. The fascia was grasped with the Raimundo forceps. The fascia was retracted anteriorly. The Veress needle was advanced into the peritoneal cavity. The saline drop test was normal. Insufflation took place up to 15 mmHg. A 5 mm optical trocar was advanced and the peritoneal cavity. 2 additional 5 mm trochars were placed in the right upper quadrant under direct visualization. A 12 mm trocar was advanced into the epigastric incision site. The gallbladder was retracted superiorly and laterally. The peritoneum overlying the infundibulum was bluntly dissected. The patient's cystic duct was visualized. The junction between the cystic duct common and hepatic duct was identified. The cystic duct was then divided after placement of 3 12 mm clips on the patient's side and one on the specimen side. The cystic artery was identified and clipped as well. A small vessel was seen along the gallbladder fossa and clipped as well. The gallbladder was then removed from the liver bed using electrocautery. The gallbladder was then removed from the epigastric trocar site with an Endo Catch bag. The gallbladder fossa was irrigated with saline. There was no evidence of any bleeding or biliary drainage seen. The fascia at the 12 millimeter site was closed using a Emeterio-Wilner 0 Vicryl stitch. The trochars were then removed. The skin at all 4 sites was closed using a 4-0 Monocryl stitch. Skin glue was utilized on the incision sites. At the end of this procedure the sponge and needle counts were correct. DISPOSITION: Stable to the recovery room
[2019-03-26 16:05] VITALS: TEMP 97
[2019-03-26 16:17] LABS: Glucose,Whole Blood 147 mg/dL (75-99)
[2019-03-26 17:38] VITALS: BP 155/60; PULSE 74; RESP 18
[2019-03-26] MEDS ORDERED: ONDANSETRON 4 MG/2 ML VIAL IVP ONE (18:00)
== END 2019-03-26 18:27 | disposition home or self-care (01) ==
LOC: OR 12:31
PROVIDERS: ATTEND Surgery
DX: K81.1 Chronic cholecystitis (principal); I10 Essential (primary) hypertension; E78.5 Hyperlipidemia, unspecified; E11.9 Type 2 diabetes mellitus without complications; E07.9 Disorder of thyroid, unspecified; I25.10 Atherosclerotic heart disease of native coronary artery without angina pectoris; Z90.710 Acquired absence of both cervix and uterus; Z98.49 Cataract extraction status, unspecified eye; Z79.84 Long term (current) use of oral hypoglycemic drugs; Z79.82 Long term (current) use of aspirin; Z79.890 Hormone replacement therapy; Z79.899 Other long term (current) drug therapy
CPT/HCPCS: 88304; 47562; J2250; J1644; J1100; J2710; J0690; J2405; J2001; J3010; J0330; J2704; J1170

== ENCOUNTER → 2019-11-20 | Outpatient (CLI) | payer MEDICARE ==
[2019-11-20 17:20] LABS: Chol/HDL Ratio 4.31; LDL Cholesterol,Calculated 72.6 mg/dL (0.0-131.0); VLDL Calculation 33.4 mg/dL (5.00-40.00)
== END | disposition home or self-care (01) ==
LOC: LABWHC1 08:50
PROVIDERS: ATTEND Internal Medicine Interventional Cardiology
DX: E78.2 Mixed hyperlipidemia (principal)
CPT/HCPCS: 36415; 80061; 84450; 84460

== ENCOUNTER → 2020-04-17 | Outpatient (CLI) | payer MEDICARE ==
--- NOTE | 2020-04-21 09:25 | MM ---
Reason for exam: screening (asymptomatic). Last mammogram was performed 1 year and 2 months ago. History: Patient is postmenopausal. Family history of premenopausal breast cancer in mother at age 30. Stereotactic core biopsy of the right breast, February 20, 2004. Excisional biopsy of the right breast, 2003. Took estrogen beginning at age 37. Physical Findings: A clinical breast exam by your physician is recommended on an annual basis and results should be correlated with mammographic findings. MG 3D Screening Mammo W/Cad Bilateral CC and MLO view(s) were taken. Prior study comparison: January 31, 2019, bilateral MG 3d screening mammo w/cad. October 26, 2017, bilateral MG 3d screening mammo w/cad. The breast tissue is heterogeneously dense. This may lower the sensitivity of mammography. Finding: There are coarse heterogeneous, grouped/clustered calcifications in the upper outer quadrant, middle position of the right breast. New finding since January 31, 2019 and October 26, 2017. ASSESSMENT: Incomplete: need additional imaging evaluation, BI-RAD 0 RECOMMENDATION: Special view mammogram of the right breast. [facility] will attempt to contact patient to return for supplemental views.
== END | disposition home or self-care (01) ==
LOC: RADMAMWWP 12:38
PROVIDERS: ATTEND Internal Medicine
DX: Z12.31 Encounter for screening mammogram for malignant neoplasm of breast (principal)
CPT/HCPCS: 77063; 77067

== ENCOUNTER → 2020-04-23 | Outpatient (CLI) | payer MEDICARE ==
--- NOTE | 2020-04-23 09:45 | MM ---
Reason for exam: additional evaluation requested from abnormal screening. Last mammogram was performed less than 1 month ago. History: Patient is postmenopausal. Family history of premenopausal breast cancer in mother at age 30. Stereotactic core biopsy of the right breast, February 20, 2004. Excisional biopsy of the right breast, 2003. Took estrogen beginning at age 37. Physical Findings: Nurse Summary: 0.5cm nodule in the left breast at 2-3 o'clock (nurse romel). MG 3D Work Up W/Cad RT Spot compression CC, spot compression MLO, and ML view(s) were taken of the right breast. Prior study comparison: April 17, 2020, bilateral MG 3d screening mammo w/cad. January 31, 2019, bilateral MG 3d screening mammo w/cad. The breast tissue is heterogeneously dense. This may lower the sensitivity of mammography. Probably benign calcifications upper outer right breast. 6 month follow up recommended. These results were verbally communicated with the patient and result sheet given to the patient on 04/23/20. ASSESSMENT: Probably benign, BI-RAD 3 RECOMMENDATION: Ultrasound. (left breast for palpable) Follow-up diagnostic mammogram of the right breast in 6 months.
--- NOTE | 2020-04-23 09:47 | USB ---
Reason for exam: additional evaluation requested from abnormal screening. History: Patient is postmenopausal. Family history of premenopausal breast cancer in mother at age 30. Stereotactic core biopsy of the right breast, February 20, 2004. Excisional biopsy of the right breast, 2003. Took estrogen beginning at age 37. US Breast Limited LT Left limited breast ultrasound including focal area of concern, retroareolar and axilla demonstrates a 0.6 x 0.2 x 0.4cm oval, cystic lesion at 3 o'clock and a 0.5cm oval lymph node at the axilla tail. These results were verbally communicated with the patient and result sheet given to the patient on 04/23/20. ASSESSMENT: Benign, BI-RAD 2 RECOMMENDATION: Follow-up diagnostic mammogram in 6 months. (follow up mammogram of the right breast in 6 months)
== END | disposition home or self-care (01) ==
LOC: RADMAMWWP 08:11
PROVIDERS: ATTEND Internal Medicine
DX: N63.20 Unspecified lump in the left breast, unspecified quadrant (principal); R92.8 Other abnormal and inconclusive findings on diagnostic imaging of breast
CPT/HCPCS: 77065; 76642; G0279; 77061

== ENCOUNTER → 2020-10-14 | Outpatient (CLI) | payer MEDICARE ==
[2020-10-14 18:16] LABS: African American GFR (CKD) 62.1 (60.0-200.0); Albumin 4.3 g/dL (3.80-4.90); Albumin/Globulin Ratio 1.79 (1.60-3.17); Anion Gap 11.3 mmol/L (4.00-12.00); Calcium 8.8 mg/dL (8.7-10.3); Carbon Dioxide 20.7 mmol/L (21.6-31.8); Chol/HDL Ratio 2.96; Globulin 2.4 g/dL (1.6-3.3); LDL Cholesterol,Calculated 84.4 mg/dL (0.0-131.0); Non-African American GFR(CKD) 53.5 (60.0-200.0); Potassium 4.8 mmol/L (3.5-5.5); Total Bilirubin 0.5 mg/dL (0.2-1.2); Total Protein 6.7 g/dL (6.2-8.2); VLDL Calculation 21.6 mg/dL (5.00-40.00)
== END | disposition home or self-care (01) ==
LOC: LABWHC1 09:05
PROVIDERS: ATTEND Internal Medicine Interventional Cardiology
DX: E78.2 Mixed hyperlipidemia (principal)
CPT/HCPCS: 36415; 80053; 80061

== ENCOUNTER → 2020-12-09 | Outpatient (CLI) | payer MEDICARE ==
[2020-12-09 09:25] LABS: HCT 35.5 % (34.0-46.0); HGB 12.2 gm/dL (11.4-16.0); MCH 31.8 pg (25.0-35.0); MCHC 34.5 g/dL (31.0-37.0); MCV 92.4 fL (80.0-100.0); Mean Platelet Volume 8.1; Platelet Count 228 k/uL (150-450); RBC 3.84 m/uL (3.80-5.40); RDW 13.1 % (11.5-15.5); WBC 7.1 k/uL (3.8-10.6)
[2020-12-09 09:40] LABS: Potassium 4.7 mmol/L (3.5-5.1)
== END | disposition home or self-care (01) ==
LOC: LABPAT 07:53
PROVIDERS: ATTEND Internal Medicine Interventional Cardiology
DX: Z01.812 Encounter for preprocedural laboratory examination (principal); I25.10 Atherosclerotic heart disease of native coronary artery without angina pectoris
CPT/HCPCS: 36415; 80051; 82565; 84520; 85027

== ENCOUNTER 2020-12-23 06:30 | Day surgery (SDC) | payer MEDICARE ==
[2020-12-19 14:29] VITALS: BMI 24.9
[~2020-12-23 06:30] MED LIST changes: +ALPRAZolam 0.25 MG TAB PO PRN; +ALPRAZolam 0.5 MG TAB PO PRN; +ASPIRIN 325 MG TAB PO STA; -BUPIVACAINE (PF) 0.25% 30 ML VIAL SQ ONE; -DEXAMETHASONE SOD PHOSPHATE 10 MG/ML 1 ML VIAL IV ONE; +HEPARIN SODIUM,PORCINE 10,000 UNIT in SODIUM CHLORIDE 0.9% 1,000 ML IRRIGATION PRN; +HEPARIN SODIUM,PORCINE 2,500 UNIT in SODIUM CHLORIDE 0.9% 250 ML IRRIGATION PRN; -HEPARIN SODIUM,PORCINE 5,000 UNIT/ML 1 ML VIAL SQ ONE; -HYDROmorphone 0.5 MG/0.5 ML SYRINGE IVP PRN; -LACTATED RINGERS 1,000 ML IV SCH; -MIDAZOLAM 2 MG/2 ML VIAL IV PRN; +NITROGLYCERIN SL TABS 0.4 MG TAB SUBLINGUAL PRN; -ONDANSETRON 4 MG/2 ML VIAL IVP ONE; +SODIUM CHLORIDE 0.9% 1,000 ML in EMPTY BAG 1 BAG IV ONE
[2020-12-23] MEDS ORDERED: SODIUM CHLORIDE 0.9% 1,000 ML IV ONE (06:52)
[2020-12-23 07:18] LABS: Glucose,Whole Blood 108 mg/dL (75-99)
[2020-12-23] MEDS ORDERED: LIDOCAINE 1% INJ 10MG/ML (20 ML MDV) ONE (07:21)
[2020-12-23] MEDS ORDERED: fentaNYL (PF) 50 MCG/ML 2 ML AMP ONE (07:21)
[2020-12-23] MEDS ORDERED: VERAPAMIL 2.5 MG/ML 2 ML AMP ONE (07:21)
[2020-12-23] MEDS ORDERED: HEPARIN SODIUM 1,000 UN/ML (10ML VL) ONE (07:21)
[2020-12-23 07:26] VITALS: RESP 16; TEMP 98.4
[2020-12-23] MEDS ORDERED: fentaNYL (PF) 50 MCG/ML 2 ML AMP IV ONE (07:45)
[2020-12-23] MEDS ORDERED: LIDOCAINE 1% INJ 10MG/ML (20 ML MDV) SQ ONE (07:49)
[2020-12-23] MEDS ORDERED: MIDAZOLAM 2 MG/2 ML VIAL IV ONE (07:49)
[2020-12-23] MEDS ORDERED: VERAPAMIL SYRINGE (5 MG/10 ML) INTRAARTER ONE (07:51)
[2020-12-23] MEDS ORDERED: VERAPAMIL 2.5 MG/ML 4 ML VIAL INTRAARTER ONE (07:53)
[2020-12-23] MEDS ORDERED: HEPARIN SODIUM 1,000 UN/ML (10ML VL) IV ONE (08:02)
[2020-12-23] MEDS ORDERED: IOPAMIDOL-370 100ML BTL INJ ONE (08:04)
[2020-12-23] MEDS ORDERED: RX INFO: IV CONTRAST WAS GIVEN 1 EACH MISC MISCELLANE PRN (08:17)
[2020-12-23] MEDS ORDERED: SODIUM CHLORIDE 0.9% 1,000 ML IV SCH (08:30)
[2020-12-23] MEDS ORDERED: ENALAPRIL MALEATE 5 MG PO SCH (09:00)
[2020-12-23] MEDS ORDERED: LEVOTHYROXINE 100 MCG TAB PO SCH (09:00)
[2020-12-23] MEDS ORDERED: METOPROLOL TARTRATE 50 MG TAB PO SCH (09:00)
[2020-12-23] MEDS ORDERED: ATORVASTATIN 40 MG TAB PO SCH (09:00)
--- NOTE | 2020-12-23 09:07 | CC ---
CARDIAC CATHETERIZATION REPORT PROCEDURE: Cardiac catheterization INDICATIONS: Mrs. Jordan is a 80-year-old female with known history of hypertension, hyperlipidemia, diabetes mellitus, who recently has been complaining of chest discomfort. Underwent a myocardial perfusion imaging that revealed evidence of stress-induced ischemia. In view of that, recommendation made regarding cardiac catheterization. The procedure as well as the risks and complications were discussed with the patient who is in full understanding and agreement. PROCEDURE IN DETAIL: Patient was brought to labor standards director in a fasting semi-sedate state after receiving fentanyl and Benadryl and achieving moderate conscious sedated state. Using Xylocaine anesthesia, Seldinger technique a 6-American sheath was introduced in the right radial artery. Selective right and left coronary angiography performed using 5-American 3.5 bend right and left Allison catheter. Multiple views of the left coronary artery including hemiaxial views were obtained. The right Allison catheter was used to cross the aortic valve. The left ventricular end-diastolic pressure was calculated. Following that, catheter and sheath were removed. Hemostasis was obtained with deployment of TR band. There was no immediate complication. Patient is returned to room in stable condition. Of note, the patient received 3500 units of intravenous heparin as well as intra-arterial verapamil. FLUOROSCOPY: There was severe calcification involving all the coronary arteries. FINDINGS: LEFT MAIN: This is a large-sized vessel, bifurcating into left circumflex, left anterior descending artery. Left main coronary artery has no evidence of high-grade stenosis. LEFT ANTERIOR DESCENDING ARTERY: This is a large-sized vessel reaching to the apex with a wraparound apex segment giving rise to a diagonal branch of small to moderate caliber. The left anterior descending artery has mild intimal disease in mid segment of 10-20% without any evidence of high-grade stenosis. LEFT CIRCUMFLEX: This is a nondominant vessel giving rise to 2 obtuse marginal branch. The left circumflex has no evidence of high-grade stenosis. RIGHT CORONARY ARTERY: This is a large dominant vessel bifurcating into PDA and posterolateral segment and branches. Right coronary artery has mild intimal disease of 10-20% at the proximal segment without any evidence of high-grade stenosis. LEFT VENTRICULOGRAM: Left ventriculogram was not performed. HEMODYNAMICS: There was no gradient across the aortic valve. The left ventricular end-diastolic pressure is 10-14 mmHg. CONCLUSION: 1. Heavily calcified coronary arteries. 2. Mild obstructive disease in the LAD and right coronary artery. RECOMMENDATION: In view of finding anatomy, I recommend continued medical therapy with aggressive coronary risk modifications being initiated. Those findings and recommendation were discussed with the patient and her family and they are in full understanding and agreement. Duration of sedation is 15 minute. PABLO / ARIANNE: [id number] /
[2020-12-23 11:17] VITALS: PULSE 56
[2020-12-23 15:00] VITALS: BP 121/55
[2020-12-23] MEDS ORDERED: amLODIPine 5 MG TAB PO SCH (21:00)
[2020-12-23] MEDS ORDERED: ASPIRIN 325 MG TAB PO SCH (21:00)
== END 2020-12-23 13:22 | disposition home or self-care (01) ==
LOC: CATHCVL 06:30
PROVIDERS: ATTEND Internal Medicine Interventional Cardiology
DX: I25.10 Atherosclerotic heart disease of native coronary artery without angina pectoris (principal); E11.9 Type 2 diabetes mellitus without complications; E78.5 Hyperlipidemia, unspecified; I10 Essential (primary) hypertension
CPT/HCPCS: 93458; C1894; C1769 ×2; J2250; J2001; J3010; J1644; Q9967

== ENCOUNTER → 2021-03-09 | Outpatient (CLI) | payer MEDICARE ==
--- NOTE | 2021-03-10 13:39 | MM ---
Reason for exam: additional evaluation requested from prior study. Last mammogram was performed 11 months ago. History: Patient is postmenopausal. Family history of premenopausal breast cancer in mother at age 30. Stereotactic core biopsy of the right breast, February 20, 2004. Excisional biopsy of the right breast, 2003. Took estrogen beginning at age 37. Physical Findings: Nurse did not find any significant physical abnormalities on exam. MG 3D Diag Mammo W/Cad KISHAN Bilateral CC and MLO view(s) were taken. Prior study comparison: April 17, 2020, bilateral MG 3d screening mammo w/cad. January 31, 2019, bilateral MG 3d screening mammo w/cad. October 26, 2017, bilateral MG 3d screening mammo w/cad. There are scattered fibroglandular densities. No significant new findings when compared with previous films. These results were verbally communicated with the patient and result sheet given to the patient on 03/09/21. ASSESSMENT: Benign, BI-RAD 2 RECOMMENDATION: Routine screening mammogram of both breasts in 1 year.
== END | disposition home or self-care (01) ==
LOC: RADMAMWWP 13:36
PROVIDERS: ATTEND Internal Medicine
DX: R92.8 Other abnormal and inconclusive findings on diagnostic imaging of breast (principal)
CPT/HCPCS: 77066; G0279; 77062

== ENCOUNTER → 2021-04-09 | Outpatient (CLI) | payer MEDICARE ==
[2021-04-09 17:08] LABS: ALT 17 U/L (8-44); AST 21 U/L (13-35); African American GFR (CKD) 59.2 (60.0-200.0); Albumin 4.4 g/dL (3.8-4.9); Alkaline Phosphatase 110 U/L (41-126); BUN/Creat Ratio 19.52 Ratio (12.00-20.00); Blood Urea Nitrogen 20.3 mg/dL (9.0-27.0); Calcium 9.1 mg/dL (8.7-10.3); Carbon Dioxide 20.1 mmol/L (21.6-31.8); Chloride 106 mmol/L (96-109); Globulin 2.4 g/dL (1.6-3.3); Glucose 99 mg/dL (70-110); Non-African American GFR(CKD) 51.1 (60.0-200.0); Potassium 4.3 mmol/L (3.5-5.5); Sodium 141 mmol/L (135-145); Total Protein 6.8 g/dL (6.2-8.2)
[2021-04-09 18:04] LABS: Chol/HDL Ratio 2.97 Ratio; LDL Cholesterol,Calculated 71.9 mg/dL (0.0-131.0)
== END | disposition home or self-care (01) ==
LOC: LABWHC1 08:29
PROVIDERS: ATTEND Internal Medicine Interventional Cardiology
DX: E78.2 Mixed hyperlipidemia (principal)
CPT/HCPCS: 36415; 80053; 80061

== ENCOUNTER 2022-05-14 09:34 | Observation (INO) | payer MEDICARE ==
--- NOTE | 2022-05-14 10:58 | ED ---
Altered Mental Status HPI - General Chief Complaint: Altered Mental Status Stated Complaint: AMS Time Seen by Provider: 05/14/22 09:45 Source: EMS Mode of arrival: EMS Limitations: altered mental status - History of Present Illness Initial Comments: 81-year-old female with past medical history of diabetes, hypertension, hyperlipidemia who presents to the emergency room for altered mental status. The daughter and at bedside. They state that the patient had her knee replaced in December. Since then the patient has had a significant decline. They state that she used to ambulate with a cane however patient has significant difficulty ambulating with a walker. Report to lower extremity weakness. She does have chronic pain in that right knee which makes her weaker on this side. When she was discharged home she attended outpatient rehab. She did not continue her home medications. Daughter found out about 5 weeks ago that she was not taking any her medications. They saw Dr. Robins at the beginning of March. It was found that her TSH was significantly elevated. She was placed back on her Synthroid for which she has been taking consistently. She was taken off of 2 of her blood pressure medications as her blood pressure was on the lower end. Daughter states that the patient has been increasingly confused and having falls. They did have to call EMS to assist the patient in standing at midnight. They deny that the patient's to the ground. She just slumped back into her bed. There is no head trauma. She did not lose consciousness. Family states it's been increasingly difficult to care for her. No fevers no weakness in her upper extremities. No slurred speech or facial droop. No alleviating, or modifying factors - Related Data Home Medications Medication Instructions Recorded Confirmed Aspirin 81 mg PO HS 11/01/18 05/14/22 Atorvastatin [Lipitor] 40 mg PO DAILY 11/01/18 05/14/22 Levothyroxine Sodium [Synthroid] 100 mcg PO DAILY 11/01/18 05/14/22 Metoprolol Tartrate [Lopressor] 50 mg PO BID 11/01/18 05/14/22 Cyanocobalamin [Vitamin B-12 1,000 mcg SQ WEEKLY 05/14/22 05/14/22 Injection] Previous Rx's Medication Instructions Recorded Amoxicillin 500 mg PO Q8H #15 capsule 05/18/22 Folic Acid 1 mg PO DAILY tab 05/18/22 Losartan [Cozaar] 100 mg PO DAILY tab 05/18/22 Melatonin 3 mg PO HS tab 05/18/22 Allergies Allergy/AdvReac Type Severity Reaction Status Date / Time No Known Allergies Allergy Verified 05/14/22 12:28 Review of Systems ROS Statement: Those systems with pertinent positive or pertinent negative responses have been documented in the HPI. ROS Other: All systems not noted in ROS Statement are negative. Past Medical History Past Medical History: Diabetes Mellitus, Hyperlipidemia, Hypertension, Myocardial Infarction (ID), Osteoarthritis (OA), Thyroid Disorder Additional Past Medical History / Comment(s): "small heart attack in 1997", abd. pain recently Last Myocardial Infarction Date:: 1997 History of Any Multi-Drug Resistant Organisms: None Reported Past Surgical History: Appendectomy, Breast Surgery, Hysterectomy, Joint Replacement Additional Past Surgical History / Comment(s): AORTIC STENT, TOTAL LEFT KNEE x2, LASER SURGERY- EYES, CATARACT SURGERY, BREAST BIOPSY RIGHT BREAST Past Anesthesia/Blood Transfusion Reactions: No Reported Reaction Past Psychological History: No Psychological Hx Reported Smoking Status: Former smoker Past Alcohol Use History: Rare Past Drug Use History: None Reported - Past Family History Mother Family Medical History: No Reported History Additional Family Medical History / Comment(s): No history of premature CAD and her family General Exam Limitations: no limitations General appearance: alert, in no apparent distress Head exam: Present: atraumatic, normocephalic, normal inspection Eye exam: Present: normal appearance, PERRL, EOMI. Absent: scleral icterus, c onjunctival injection, periorbital swelling ENT exam: Present: normal exam, mucous membranes moist Neck exam: Present: normal inspection. Absent: tenderness, meningismus, lymphadenopathy Respiratory exam: Present: normal lung sounds bilaterally. Absent: respiratory distress, wheezes, rales, rhonchi, stridor Cardiovascular Exam: Present: regular rate, normal rhythm, normal heart sounds. Absent: systolic murmur, diastolic murmur, rubs, gallop, clicks GI/Abdominal exam: Present: soft, normal bowel sounds. Absent: distended, tenderness, guarding, rebound, rigid Extremities exam: Present: normal inspection, full ROM, normal capillary refill. Absent: tenderness, pedal edema, joint swelling, calf tenderness Back exam: Present: normal inspection Neurological exam: Present: alert, oriented X3, CN II-XII intact Psychiatric exam: Present: normal affect, normal mood Skin exam: Present: warm, dry, intact, normal color. Absent: rash Course Vital Signs 05/14/22 05/14/22 05/14/22 09:39 14:07 15:00 Temperature 98.3 F 97.6 F Pulse Rate 57 L 60 Pulse Rate [ 60 Pulse Oximetery ] Respiratory 18 18 18 Rate Blood Pressure 188/75 167/71 Blood Pressure 190/68 [Right Arm] O2 Sat by Pulse 98 98 95 Oximetry 05/14/22 15:39 Temperature Pulse Rate 61 Pulse Rate [ Pulse Oximetery ] Respiratory 18 Rate Blood Pressure 165/81 Blood Pressure [Right Arm] O2 Sat by Pulse 96 Oximetry Medical Decision Making - Medical Decision Making Upon arrival patient was placed into room 20. A thorough history and physical exam was performed. Patient is alert and oriented. Can answer all questions appropriately. Laboratory studies are conducted and reviewed. Urinalysis has rare bacteria. CT of the brain demonstrates chronic small vessel ischemia. Chest x-ray demonstrates no acute process. Discuss results with the patient. Discussed results with Dr. wisdom who will admit the patient for PT, OT and case management consult. Patient awaiting a bed on the floor - Lab Data Result diagrams: 05/17/22 06:09 05/17/22 06:09 Lab Results 05/14/22 05/14/22 05/14/22 Range/Units 11:54 11:54 11:54 WBC 6.4 (3.8-10.6) k/uL RBC 4.17 (3.80-5.40) m/uL Hgb 13.0 (11.4-16.0) gm/dL Hct 38.4 (34.0-46.0) % MCV 92.2 (80.0-100.0) fL MCH 31.2 (25.0-35.0) pg MCHC 33.8 (31.0-37.0) g/dL RDW 14.0 (11.5-15.5) % Plt Count 198 (150-450) k/uL MPV 9.3 Neutrophils % 61 % Lymphocytes % 31 % Monocytes % 5 % Eosinophils % 1 % Basophils % 0 % Neutrophils # 3.9 (1.3-7.7) k/uL Lymphocytes # 2.0 (1.0-4.8) k/uL Monocytes # 0.3 (0-1.0) k/uL Eosinophils # 0.1 (0-0.7) k/uL Basophils # 0.0 (0-0.2) k/uL PT 11.0 (9.0-12.0) sec INR 1.1 (<1.2) APTT 22.1 (22.0-30.0) sec Sodium (137-145) mmol/L Potassium (3.5-5.1) mmol/L Chloride (98-107) mmol/L Carbon Dioxide (22-30) mmol/L Anion Gap mmol/L BUN (7-17) mg/dL Creatinine (0.52-1.04) mg/dL Est GFR (CKD-EPI)AfAm (>60 ml/min/1.73 sqM) Est GFR (CKD-EPI)NonAf (>60 ml/min/1.73 sqM) Glucose (74-99) mg/dL Calcium (8.4-10.2) mg/dL Total Bilirubin (0.2-1.3) mg/dL AST (14-36) U/L ALT (4-34) U/L Alkaline Phosphatase (38-126) U/L Troponin I (0.000-0.034) ng/mL Total Protein (6.3-8.2) g/dL Albumin (3.5-5.0) g/dL Vitamin B12 (200.0-944.0) pg/mL Folate (4.40-31.00) ng/mL TSH (0.465-4.680) mIU/L Urine Color Yellow Urine Appearance Cloudy H (Clear) Urine pH 6.5 (5.0-8.0) Ur Specific [place] 1.021 (1.001-1.035) Urine Protein Trace H (Negative) Urine Glucose (UA) Negative (Negative) Urine Ketones Negative (Negative) Urine Blood Negative (Negative) Urine Nitrite Negative (Negative) Urine Bilirubin Negative (Negative) Urine Urobilinogen <2.0 (<2.0) mg/dL Ur Leukocyte Esterase Moderate H (Negative) Urine RBC 1 (0-5) /hpf Urine WBC 36 H (0-5) /hpf Ur Squamous Epith Cells 4 (0-4) /hpf Urine Bacteria Rare H (None) /hpf Hyaline Casts 1 (0-2) /lpf Urine Mucus Rare H (None) /hpf Salicylates mg/dL Urine Opiates Screen Not Detected (NotDetected) Ur Oxycodone Screen Not Detected (NotDetected) Urine Methadone Screen Not Detected (NotDetected) Ur Propoxyphene Screen Not Detected (NotDetected) Acetaminophen ug/mL Ur Barbiturates Screen Not Detected (NotDetected) U Tricyclic Antidepress Not Detected (NotDetected) Ur Phencyclidine Scrn Not Detected (NotDetected) Ur Amphetamines Screen Not Detected (NotDetected) U Methamphetamines Scrn Not Detected (NotDetected) U Benzodiazepines Scrn Not Detected (NotDetected) Urine Cocaine Screen Not Detected (NotDetected) U Marijuana (THC) Screen Not Detected (NotDetected) 05/14/22 05/14/22 05/14/22 Range/Units 11:54 11:54 11:54 WBC (3.8-10.6) k/uL RBC (3.80-5.40) m/uL Hgb (11.4-16.0) gm/dL Hct (34.0-46.0) % MCV (80.0-100.0) fL MCH (25.0-35.0) pg MCHC (31.0-37.0) g/dL RDW (11.5-15.5) % Plt Count (150-450) k/uL MPV Neutrophils % % Lymphocytes % % Monocytes % % Eosinophils % % Basophils % % Neutrophils # (1.3-7.7) k/uL Lymphocytes # (1.0-4.8) k/uL Monocytes # (0-1.0) k/uL Eosinophils # (0-0.7) k/uL Basophils # (0-0.2) k/uL PT (9.0-12.0) sec INR (<1.2) APTT (22.0-30.0) sec Sodium 143 (137-145) mmol/L Potassium 3.6 (3.5-5.1) mmol/L Chloride 107 (98-107) mmol/L Carbon Dioxide 28 (22-30) mmol/L Anion Gap 8 mmol/L BUN 19 H (7-17) mg/dL Creatinine 0.99 (0.52-1.04) mg/dL Est GFR (CKD-EPI)AfAm 62 (>60 ml/min/1.73 sqM) Est GFR (CKD-EPI)NonAf 54 (>60 ml/min/1.73 sqM) Glucose 108 H (74-99) mg/dL Calcium 8.9 (8.4-10.2) mg/dL Total Bilirubin 0.6 (0.2-1.3) mg/dL AST 24 (14-36) U/L ALT 16 (4-34) U/L Alkaline Phosphatase 100 (38-126) U/L Troponin I <0.012 (0.000-0.034) ng/mL Total Protein 7.6 (6.3-8.2) g/dL Albumin 4.4 (3.5-5.0) g/dL Vitamin B12 958.0 H (200.0-944.0) pg/mL Folate (4.40-31.00) ng/mL TSH 0.596 (0.465-4.680) mIU/L Urine Color Urine Appearance (Clear) Urine pH (5.0-8.0) Ur Specific [place] (1.001-1.035) Urine Protein (Negative) Urine Glucose (UA) (Negative) Urine Ketones (Negative) Urine Blood (Negative) Urine Nitrite (Negative) Urine Bilirubin (Negative) Urine Urobilinogen (<2.0) mg/dL Ur Leukocyte Esterase (Negative) Urine RBC (0-5) /hpf Urine WBC (0-5) /hpf Ur Squamous Epith Cells (0-4) /hpf Urine Bacteria (None) /hpf Hyaline Casts (0-2) /lpf Urine Mucus (None) /hpf Salicylates <1.0 mg/dL Urine Opiates Screen (NotDetected) Ur Oxycodone Screen (NotDetected) Urine Methadone Screen (NotDetected) Ur Propoxyphene Screen (NotDetected) Acetaminophen <10.0 ug/mL Ur Barbiturates Screen (NotDetected) U Tricyclic Antidepress (NotDetected) Ur Phencyclidine Scrn (NotDetected) Ur Amphetamines Screen (NotDetected) U Methamphetamines Scrn (NotDetected) U Benzodiazepines Scrn (NotDetected) Urine Cocaine Screen (NotDetected) U Marijuana (THC) Screen (NotDetected) 05/14/22 Range/Units 11:54 WBC (3.8-10.6) k/uL RBC (3.80-5.40) m/uL Hgb (11.4-16.0) gm/dL Hct (34.0-46.0) % MCV (80.0-100.0) fL MCH (25.0-35.0) pg MCHC (31.0-37.0) g/dL RDW (11.5-15.5) % Plt Count (150-450) k/uL MPV Neutrophils % % Lymphocytes % % Monocytes % % Eosinophils % % Basophils % % Neutrophils # (1.3-7.7) k/uL Lymphocytes # (1.0-4.8) k/uL Monocytes # (0-1.0) k/uL Eosinophils # (0-0.7) k/uL Basophils # (0-0.2) k/uL PT (9.0-12.0) sec INR (<1.2) APTT (22.0-30.0) sec Sodium (137-145) mmol/L Potassium (3.5-5.1) mmol/L Chloride (98-107) mmol/L Carbon Dioxide (22-30) mmol/L Anion Gap mmol/L BUN (7-17) mg/dL Creatinine (0.52-1.04) mg/dL Est GFR (CKD-EPI)AfAm (>60 ml/min/1.73 sqM) Est GFR (CKD-EPI)NonAf (>60 ml/min/1.73 sqM) Glucose (74-99) mg/dL Calcium (8.4-10.2) mg/dL Total Bilirubin (0.2-1.3) mg/dL AST (14-36) U/L ALT (4-34) U/L Alkaline Phosphatase (38-126) U/L Troponin I (0.000-0.034) ng/mL Total Protein (6.3-8.2) g/dL Albumin (3.5-5.0) g/dL Vitamin B12 (200.0-944.0) pg/mL Folate 15.60 (4.40-31.00) ng/mL TSH (0.465-4.680) mIU/L Urine Color Urine Appearance (Clear) Urine pH (5.0-8.0) Ur Specific [place] (1.001-1.035) Urine Protein (Negative) Urine Glucose (UA) (Negative) Urine Ketones (Negative) Urine Blood (Negative) Urine Nitrite (Negative) Urine Bilirubin (Negative) Urine Urobilinogen (<2.0) mg/dL Ur Leukocyte Esterase (Negative) Urine RBC (0-5) /hpf Urine WBC (0-5) /hpf Ur Squamous Epith Cells (0-4) /hpf Urine Bacteria (None) /hpf Hyaline Casts (0-2) /lpf Urine Mucus (None) /hpf Salicylates mg/dL Urine Opiates Screen (NotDetected) Ur Oxycodone Screen (NotDetected) Urine Methadone Screen (NotDetected) Ur Propoxyphene Screen (NotDetected) Acetaminophen ug/mL Ur Barbiturates Screen (NotDetected) U Tricyclic Antidepress (NotDetected) Ur Phencyclidine Scrn (NotDetected) Ur Amphetamines Screen (NotDetected) U Methamphetamines Scrn (NotDetected) U Benzodiazepines Scrn (NotDetected) Urine Cocaine Screen (NotDetected) U Marijuana (THC) Screen (NotDetected) - EKG Data EKG Comments: EKG was interpreted by myself. Demonstrate sinus rhythm with a rate of 60. MD interval 193. QRS 88. QTC of 437. No acute ST segment elevations or depressions. Disposition Clinical Impression: Acute encephalopathy, Bilateral leg weakness, Fall Disposition: ADMITTED IP TO THIS [facility] Condition: Stable Is patient prescribed a controlled substance at d/c from ED?: No Time of Disposition: 14:32 Decision to Admit Reason: Admit from EC Decision Date: 05/14/22 Decision Time: 14:32
--- NOTE | 2022-05-14 12:11 | CT ---
EXAMINATION TYPE: CT brain wo con DATE OF EXAM: 05/14/2022 COMPARISON: None INDICATION: Altered mental status. DLP: 1076.4 mGycm, Automated exposure control for dose reduction was used. CONTRAST: None CT of the brain is performed utilizing 3 mm thick sections through the posterior fossa and 3 mm thick sections through the remaining calvarium. Study is performed within 24 hours of arrival to the hosp ital. No abnormal hyperdensity is present to suggest an acute intracranial hemorrhage. No mass lesion is evident. No acute infarcts are evident. Confluent periventricular white matter hypodensity is present, likely on the basis of chronic white matter ischemic changes. Ventricles and sulci are prominent for the patient age. Paranasal sinuses and mastoid air cells within the [id number] are clear. IMPRESSIONS: 1. Atrophy with chronic appearing periventricular white matter ischemic-type changes.
--- NOTE | 2022-05-14 12:14 | XR ---
EXAMINATION TYPE: XR chest 2V DATE OF EXAM: 05/14/2022 COMPARISON: Prior chest x-ray January 22, 2019 HISTORY: Altered mental status and weakness. TECHNIQUE: Frontal and lateral views of the chest are obtained. FINDINGS: There is some chronic parenchymal change bilaterally without suspicious focal air space op acity, pleural effusion, or pneumothorax seen. The cardiac silhouette size is stable and mildly enla rged with atherosclerotic change aortic knob. Overlying bra strap. The osseous structures are demin eralized. Cholecystectomy clips are seen. IMPRESSION: Chronic changes and mild cardiomegaly without acute pulmonary process.
[2022-05-14 12:19] LABS: Basophils % (A) 0 %; Eosinophils # (A) 0.1 k/uL (0-0.7); Eosinophils % (A) 1 %; HCT 38.4 % (34.0-46.0); Lymphocytes % (A) 31 %; MCH 31.2 pg (25.0-35.0); MCHC 33.8 g/dL (31.0-37.0); MCV 92.2 fL (80.0-100.0); Mean Platelet Volume 9.3; Monocytes # (A) 0.3 k/uL (0-1.0); Monocytes % (A) 5 %; Neutrophils # (A) 3.9 k/uL (1.3-7.7); Neutrophils % (A) 61 %; Platelet Count 198 k/uL (150-450); RBC 4.17 m/uL (3.80-5.40); WBC 6.4 k/uL (3.8-10.6)
[2022-05-14 12:35] LABS: ALT 16 U/L (4-34); AST 24 U/L (14-36); Acetaminophen <10.0 ug/mL; African American GFR (CKD) 62 (>60 ml/min/1.73 sqM); Albumin 4.4 g/dL (3.5-5.0); Alkaline Phosphatase 100 U/L (38-126); Anion Gap 8 mmol/L; Blood Urea Nitrogen 19 mg/dL (7-17); Calcium 8.9 mg/dL (8.4-10.2); Carbon Dioxide 28 mmol/L (22-30); Chloride 107 mmol/L (98-107); Glucose 108 mg/dL (74-99); Non-African American GFR(CKD) 54 (>60 ml/min/1.73 sqM); Potassium 3.6 mmol/L (3.5-5.1); Salicylate <1.0 mg/dL; Sodium 143 mmol/L (137-145); Total Bilirubin 0.6 mg/dL (0.2-1.3); Total Protein 7.6 g/dL (6.3-8.2)
[2022-05-14 12:38] LABS: INR 1.1 (<1.2); Partial Thromboplastin Time 22.1 sec (22.0-30.0)
[2022-05-14] MEDS ORDERED: NALOXONE 0.4 MG/ML 1 ML VIAL IV PRN (14:32)
[2022-05-14 14:34] LABS: Appearance,Urine Cloudy (Clear); Bacteria,Urine Rare /hpf; Bilirubin,Urine Negative (Negative); Blood,Urine Negative (Negative); Color,Urine Yellow; Glucose,Urine (UA) Negative (Negative); Hyaline Casts,Urine 1 /lpf (0-2); Ketones,Urine Negative (Negative); Leukocyte Esterase,Urine Moderate (Negative); Mucus,Urine Rare /hpf; Nitrite,Urine Negative (Negative); PH, Urine 6.5 (5.0-8.0); Protein,Urine Trace (Negative); RBC,Urine 1 /hpf (0-5); Specific Gravity,Urine 1.021 (1.001-1.035); Squamous Epithelial Cell,Urine 4 /hpf (0-4); Urobilinogen,Urine <2.0 mg/dL (<2.0); WBC,Urine 36 /hpf (0-5)
[2022-05-14 14:43] LABS: Amphetamine Screen,Urine Not Detected (NotDetected); Barbiturate Screen,Urine Not Detected (NotDetected); Benzodiazepines Screen,Urine Not Detected (NotDetected); Cocaine Screen,Urine Not Detected (NotDetected); Methadone Screen, Urine Not Detected (NotDetected); Opiate Screen,Urine Not Detected (NotDetected); Oxycodone Screen, Urine Not Detected (NotDetected); Phencyclidine Screen,Urine Not Detected (NotDetected); Tricyclic Antidepressant,Urine Not Detected (NotDetected); Urn Cannabinoid Scrn Not Detected (NotDetected)
[2022-05-14] MEDS: SODIUM CHLORIDE 0.9% 1,000 ML IV SCH (14:59)
--- NOTE | 2022-05-14 15:43 | CT ---
EXAMINATION TYPE: CT lumbar spine wo con DATE OF EXAM: 05/14/2022 COMPARISON: HISTORY: bilateral leg weakness, no injury CT DLP: 902.5 mGycm CONTRAST: CT scan of the lumbar is performed , patient injected with mL of . TECHNIQUE: CT of the lumbar spine is performed on a spiral scan at 3 mm thick sections. Reconstructed images are performed in the coronal and sagittal planes. FINDINGS: T10-T11: No focal disc herniation or significant disc bulge is evident. No spinal canal stenosis or neural foraminal stenosis is present. T11-T12: No focal disc herniation or significant disc bulge is evident. No spinal canal stenosis or neural foraminal stenosis is present. T12-L1: Vacuum disc phenomenon is present. Mild diffuse disc space bulge is present with mild intrath ecal sac contact. No AP spinal canal stenosis present. L1-L2: No focal disc herniation or significant disc bulge is evident. No spinal canal stenosis or n eural foraminal stenosis is present L2-L3: No focal disc herniation or significant disc bulge is evident. No spinal canal stenosis or n eural foraminal stenosis is present L3-L4: Mild disc bulge has anterior thecal sac contact. No AP spinal canal stenosis present. Mild fac et hypertrophy with ligamentum flavum laxity is present with posterior lateral sac compression. L4-L5: Broad-based disc bulge hs moderate anterior thecal sac compression. No AP spinal canal stenosi s present. There is a grade 1 spondylolisthesis with L4 anterior to L5. Disc uncovering is present. F acet hypertrophy and ligamentum flavum laxity is present. Mild spinal canal narrowing is present. L5-S1: There is loss of disc height to this level. Right L5 inferior endplate spurring is present wit h associated disc material centrally. This has moderate anterior thecal sac impression. Some canal na rrowing is present. Some lateral recess narrowing is present on the right. IMPRESSION: 1. Spinal canal narrowing L4-5 due to disc uncovering and facet hypertrophy. 2. Milder spinal canal narrowing from large residual disc bulge and some right lateral recess stenosi s from endplate spurring. 3. Degenerative disc changes T12-L1. 4. Mild thecal sac compression at L3-4 from disc bulging.
[2022-05-14] MEDS ORDERED: lisinopriL 10 MG TAB PO STA (17:43)
[2022-05-14] MEDS: FOLIC ACID 1 MG TAB PO SCH (18:12)
--- NOTE | 2022-05-14 19:00 | P.CNNES ---
History of Present Illness Consult date: 05/14/22 Requesting physician: Amanda York Reason for Consult: acute/subacute encephalopathy History of Present Illness: Patient is a 81-year-old female came to the hospital by ambulance today at 9:34 AM for leg weakness and falls. Patient has undergone right knee replacement on 02/25/2022. Patient did not get much physical therapy afterwards. In the last couple days, patient has events, in which she tried to get up to go to the bathroom, and legs would give out and she would slide down on the floor. After 2 incidents, they called the ambulance. Patient did not have any falls prior to these incidents. Patient's and was also present who provided with a history. Patient lives at home with her , who also has significant health issues. Patient states that she does have low back pain for 1 year, which she claims . It is localized, without any radiation. She feels it may be slightly getting worse. She denies any neck pain or any mid back pain. Patient denies any alcohol or tobacco use. She does have borderline diabetes. No hypertension. Patient's son admits that she has been forgetful for the last 4 months. She gets confused, and sometimes difficult to remember stuff. Process with a MRI copy process is somewhat the response will be he he he is he really He and and he he usually he is laying in he is a he was along the he he is he my observations management he he Sometimes she would be hallucinating. Patient was recently diagnosed with vitamin B12 deficiency and hypothyroidism, and since on replacement, she is better. EMS flow sheet not available the chart. Vital signs arrival blood pressure 188/75, pulse rate 57, temperature 98.3. Most recent blood pressure 165/81. Blood test shows normal CBC, PT/PTT, normal chem 20, and normal troponin, TSH. UA shows moderate amount of leukocyte Estrace, with negative nitrite. Urine drug screen is negative. Patient's last hemoglobin A1c 6.0 on 04/05/2022. B12 was <150 on 04/05/2022 2, folic acid 5.8 and TSH is normal. On my detailed review, it appears that all blood tests from 04/05/2022 were off the chart as compared to patient's norms (including TSH, lipid panel). Suspect lab error. Computed tomography scan of head revealed atrophy with chronic appearing periventricular white matter ischemic type changes. I personally reviewed CT head, agree with the findings. The significant amount of generalized atrophy and periventricular white matter changes. Visualized paranasal sinuses are clear. Chest x-ray showed chronic changes and mild cardiomegaly without acute pulmonary process. EKG shows sinus rhythm, possible right ventricular conduction delay. Computed tomography scan of his lumbar spine revealed spinal canal narrowing L4 5 due to disc uncovering and facet hypertrophy. Mild or signal canal narrowing from large residual disc bulge and some right lateral recess stenosis from endplates spurring. Degenerative disc changes T12-L1. Mild thecal sac compression at L3 4 from disc bulging. Patient's home medications include aspirin 81 mg, levothyroxine, enalapril, metoprolol, Lipitor 40 mg and vitamin B12 injection 1000 g subcu weekly. Review of Systems Constitutional: Denies chills, Denies fever Eyes: denies blurred vision, denies pain Ears: deny: ear discharge, earache Ears, nose, mouth and throat: Denies headache, Denies sore throat Cardiovascular: Denies chest pain, Denies shortness of breath Respiratory: Denies cough Gastrointestinal: Denies abdominal pain, Denies diarrhea, Denies nausea, Denies vomiting Genitourinary: Denies dysuria, Denies hematuria Integumentary: Denies pruritus, Denies rash Neurological: Reports as per HPI Psychiatric: Reports confusion, Reports hallucinations, Reports memory loss, Denies anxiety, Denies depression Endocrine: Denies fatigue, Denies weight change Past Medical History Past Medical History: Diabetes Mellitus, Hyperlipidemia, Hypertension, Myocardial Infarction ([place]), Osteoarthritis (OA), Thyroid Disorder Additional Past Medical History / Comment(s): "small heart attack in 1997", abd. pain recently Last Myocardial Infarction Date:: 1997 History of Any Multi-Drug Resistant Organisms: None Reported Past Surgical History: Appendectomy, Breast Surgery, Hysterectomy, Joint Replacement Additional Past Surgical History / Comment(s): AORTIC STENT, TOTAL LEFT KNEE x2, LASER SURGERY- EYES, CATARACT SURGERY, BREAST BIOPSY RIGHT BREAST Past Anesthesia/Blood Transfusion Reactions: No Reported Reaction Past Psychological History: No Psychological Hx Reported Smoking Status: Former smoker Past Alcohol Use History: Rare Past Drug Use History: None Reported - Past Family History Mother Family Medical History: No Reported History Additional Family Medical History / Comment(s): No history of premature CAD and her family Medications and Allergies Home Medications Medication Instructions Recorded Confirmed Type Aspirin 81 mg PO HS 11/01/18 05/14/22 History Atorvastatin [Lipitor] 40 mg PO DAILY 11/01/18 05/14/22 History Enalapril Maleate [Vasotec] 5 mg PO BID 11/01/18 05/14/22 History Levothyroxine Sodium [Synthroid] 100 mcg PO DAILY 11/01/18 05/14/22 History Metoprolol Tartrate [Lopressor] 50 mg PO BID 11/01/18 05/14/22 History Cyanocobalamin [Vitamin B-12 1,000 mcg SQ WEEKLY 05/14/22 05/14/22 History Injection] Allergies Allergy/AdvReac Type Severity Reaction Status Date / Time No Known Allergies Allergy Verified 05/14/22 12:28 Physical Examination - Vital Signs Vital Signs: Vital Signs Temp Pulse Resp BP Pulse Ox 05/14/22 15:39 61 18 165/81 96 05/14/22 14:07 60 18 167/71 98 05/14/22 09:39 98.3 F 57 L 18 188/75 98 Intake and Output 05/14/22 05/14/22 05/14/22 06:59 14:59 22:59 Other: Weight 72.575 kg Patient is an elderly female, in no acute distress. Patient is alert awake. Patient states it is May, but then said was April and the year is 1949. She knows that she is in [facility] in [facility] and knows name of the current president. Speech and language functions are normal. Patient can name and repeat very well. No aphasia or dysarthria. Attention, concentration is intact and fund of knowledge is limited. Patient has slow mentation, and prolonged latency time to answer questions. Patient has bilaterally positive palmomental reflex and visuospatial apraxia. On cranial nerve examination, pupils are equal, round and reacting to light, visual villasenor are full on confrontation, with no neglect on double simultaneous stimulation. Extraocular muscles are intact with no nystagmus. Face is symmetric, tongue protrudes to the midline. Palatal elevation and sensation normal, hearing and shoulder shrug normal, facial sensation normal. On muscle strength testing, there is no pronator drift and the strength is normal in arms and legs distally and proximally. Deep tendon reflexes are symmetric biceps 2, brachioradialis 2, knees 1, ankles 1, plantars are flat bilaterally. Sensory to touch is equal with no neglect on double simultaneous stimulation. Cerebellar function showed no ataxia for atxtxl-md-dlpt testing. No dysdiadochokinesia. Tone and bulk of muscles normal. Gait deferred.. On general examination, there is no carotid bruit or murmur, S1-S2 audible. Chest is clear on consultation. Abdomen is soft nontender. No organomegaly, bowel sounds present. Peripheral pulses are present. No edema. Results - Laboratory Findings CBC and BMP: 05/14/22 11:54 05/14/22 11:54 Abnormal Lab Findings: Abnormal Labs 05/14/22 05/14/22 11:54 11:54 BUN 19 H Glucose 108 H Urine Appearance Cloudy H Urine Protein Trace H Ur Leukocyte Esterase Moderate H Urine WBC 36 H Urine Bacteria Rare H Urine Mucus Rare H Assessment and Plan Assessment: * Leg weakness, falls, possible due to deconditioning. Patient underwent right knee replacement on 02/25/2022, with very limited physical therapy. * Chronic low back pain, recently worse. Rule out spinal stenosis. * Forgetfulness, memory disturbance, probably due to mild cognitive impairment versus early dementia. * Vitamin B12 deficiency Plan: * MRI of lumbar spine, rule out spinal stenosis * Recheck B12, folate level. * PT OT. Patient may benefit from subacute rehabilitation. * Patient has mild cognitive impairment versus early dementia. Suggested patient's son to have patient follow up with neurologist as an outpatient for more detailed neurocognitive evaluation. Patient may benefit from cognitive enhancing medications. He understands and will discuss with patient's and his siblings. * Dr. Surinder Mulligan will resume neurology service in the morning. * Thank you for the consult.
[2022-05-14] MEDS: METOPROLOL TARTRATE 50 MG TAB PO SCH (20:16)
[2022-05-14] MEDS: ASPIRIN 81 MG PO SCH (20:17)
[2022-05-15] MEDS: LEVOTHYROXINE 100 MCG TAB PO SCH (05:27)
[2022-05-15] MEDS: SODIUM CHLORIDE 0.9% 1,000 ML IV SCH (05:30)
[2022-05-15] MEDS: FOLIC ACID 1 MG TAB PO SCH (08:40)
[2022-05-15] MEDS: METOPROLOL TARTRATE 50 MG TAB PO SCH ×2 (08:40→20:07)
[2022-05-15] MEDS: ENOXAPARIN 40 MG/0.4 ML SYRINGE SQ SCH (08:40)
[2022-05-15] MEDS: ATORVASTATIN 40 MG TAB PO SCH (08:40)
[2022-05-15] MEDS ORDERED: lisinopriL 10 MG TAB PO SCH (09:00)
[2022-05-15] MEDS ORDERED: ACETAMINOPHEN TAB 325 MG TAB PO PRN (10:35)
--- NOTE | 2022-05-15 11:31 | P.HPIM ---
History of Present Illness 81-year-old female came in after falls. Patient also complained of back pain because of which there was concern about severe lumbar status post spinal stenosis because of which CT of the back was obtained which showed spinal canal [place] at the L4-5 with facet hypertrophy and degenerative changes at the T12-L1 mild thecal compression at L3-4 disc bulging. Patient's symptoms completely resolved at this time patient denied any back pain although patient is requiring a assistance translation may require subacute rehabilitation although patient insists on going home. She lives with her who had a recent cardiac stents. Patient doesn't have any tingling numbness or weakness in both legs that are focal but does have generalized weakness. MRI was of the lumbar spine was ordered by neurology. REVIEW OF SYSTEMS: CONSTITUTIONAL: No fever, no malaise, no fatigue. HEENT: No recent visual problems or hearing problems. Denied any sore throat. CARDIOVASCULAR: No chest pain, orthopnea, PND, no palpitations, no syncope. PULMONARY: No shortness of breath, no cough, no hemoptysis. GASTROINTESTINAL: No diarrhea, no nausea, no vomiting, no abdominal pain. NEUROLOGICAL: No headaches, no weakness, no numbness. HEMATOLOGICAL: Denies any bleeding or petechiae. GENITOURINARY: Denies any burning micturition, frequency, or urgency. MUSCULOSKELETAL/RHEUMATOLOGICAL: Denies any joint pain, swelling, or any muscle pain. ENDOCRINE: Denies any polyuria or polydipsia. The rest of the 14-point review of systems is negative. PHYSICAL EXAMINATION: GENERAL: The patient is alert and oriented x3, not in any acute distress. Well developed, well nourished. HEENT: Pupils are round and equally reacting to light. EOMI. No scleral icterus. No conjunctival pallor. Normocephalic, atraumatic. No pharyngeal erythema. No thyromegaly. CARDIOVASCULAR: S1 and S2 present. No murmurs, rubs, or gallops. PULMONARY: Chest is clear to auscultation, no wheezing or crackles. ABDOMEN: Soft, nontender, nondistended, normoactive bowel sounds. No palpable organomegaly. MUSCULOSKELETAL: No joint swelling or deformity. EXTREMITIES: No cyanosis, clubbing, or pedal edema. NEUROLOGICAL: Gross neurological examination did not reveal any focal deficits. Patient does have generalized weakness. SKIN: No rashes. Assessment and plan -Generalized weakness secondary to deconditioning physical therapy and occupational therapy evaluation possibility of subacute rehabilitation on Tuesday. -Mild cognitive impairment -Chronic low back pain with possibility of lumbar spinal stenosis and degenerative changes in the back MRI was ordered by neurology awaiting MRI -Hypertension -Hyperlipidemia - coronary artery disease DVT prophylaxis: Lovenox Past Medical History Past Medical History: Diabetes Mellitus, Hyperlipidemia, Hypertension, Myocardial Infarction ([place]), Osteoarthritis (OA), Thyroid Disorder Additional Past Medical History / Comment(s): "small heart attack in 1997", abd. pain recently Last Myocardial Infarction Date:: 1997 History of Any Multi-Drug Resistant Organisms: None Reported Past Surgical History: Appendectomy, Breast Surgery, Hysterectomy, Joint Replacement Additional Past Surgical History / Comment(s): AORTIC STENT, TOTAL LEFT KNEE x2, LASER SURGERY- EYES, CATARACT SURGERY, BREAST BIOPSY RIGHT BREAST Past Anesthesia/Blood Transfusion Reactions: No Reported Reaction Past Psychological History: No Psychological Hx Reported Smoking Status: Former smoker Past Alcohol Use History: Rare Past Drug Use History: None Reported - Past Family History Mother Family Medical History: No Reported History Additional Family Medical History / Comment(s): No history of premature CAD and her family Medications and Allergies Home Medications Medication Instructions Recorded Confirmed Type Aspirin 81 mg PO HS 11/01/18 05/14/22 History Atorvastatin [Lipitor] 40 mg PO DAILY 11/01/18 05/14/22 History Enalapril Maleate [Vasotec] 5 mg PO BID 11/01/18 05/14/22 History Levothyroxine Sodium [Synthroid] 100 mcg PO DAILY 11/01/18 05/14/22 History Metoprolol Tartrate [Lopressor] 50 mg PO BID 11/01/18 05/14/22 History Cyanocobalamin [Vitamin B-12 1,000 mcg SQ WEEKLY 05/14/22 05/14/22 History Injection] Allergies Allergy/AdvReac Type Severity Reaction Status Date / Time No Known Allergies Allergy Verified 05/14/22 12:28 Physical Exam Vitals: Vital Signs Temp Pulse Pulse Resp BP BP Pulse Ox 05/15/22 07:00 97.7 F 57 L 18 177/84 98 05/15/22 02:09 97.8 F 52 L 18 176/73 99 05/14/22 20:00 17 05/14/22 19:06 97.4 F L 52 L 17 179/76 97 12/16/22 15:39 61 18 165/81 96 05/14/22 15:00 97.6 F 60 18 190/68 95 05/14/22 14:07 60 18 167/71 98 Intake and Output 05/14/22 05/15/22 05/15/22 22:59 06:59 14:59 Intake Total 100 Output Total 500 Balance 100 -500 Intake: Oral 100 Output: Urine 500 Other: Voiding Method Bedside Commode Bedside Commode # Voids 4 Weight 72.575 kg Results CBC & Chem 7: 05/14/22 11:54 05/14/22 11:54 Labs: Abnormal Lab Results - Last 24 Hours (Table) 05/14/22 05/14/22 05/14/22 Range/Units 11:54 11:54 11:54 BUN 19 H (7-17) mg/dL Glucose 108 H (74-99) mg/dL Vitamin B12 958.0 H (200.0-944.0) pg/mL Urine Appearance Cloudy H (Clear) Urine Protein Trace H (Negative) Ur Leukocyte Esterase Moderate H (Negative) Urine WBC 36 H (0-5) /hpf Urine Bacteria Rare H (None) /hpf Urine Mucus Rare H (None) /hpf Microbiology - Last 24 Hours (Table) 05/14/22 11:54 Urine Culture - Preliminary Urine,Voided Thrombosis Risk Factor Assmnt - Choose All That Apply Any of the Below Risk Factors Present?: Yes Each Factor Represents 1 point: Acute [place] Other Risk Factors: No Each Risk Factor Represents 3 Points: Age 75 years or older Other congenital or acquired thrombophilia - If yes, enter type in comment: No Thrombosis Risk Factor Assessment Total Risk Factor Score: 4 Thrombosis Risk Factor Assessment Level: Moderate Risk
[2022-05-15 11:56] LABS: Basophils # (A) 0.04 X 10*3/uL (0.00-0.10); Basophils % (A) 0.6 %; Eosinophils # (A) 0.06 X 10*3/uL (0.04-0.35); Eosinophils % (A) 0.9 %; HCT 37.2 % (37.2-46.3); HGB 11.9 g/dL (12.0-15.0); Immature Grans, Automated 0.3 %; Lymphocytes # (A) 1.84 X 10*3/uL (0.90-5.00); Lymphocytes % (A) 26.4 %; MCV 93.7 fL (80.0-97.0); Mean Platelet Volume 11.5 fL (9.5-12.2); Monocytes # (A) 0.41 X 10*3/uL (0.20-1.00); Monocytes % (A) 5.9 %; NRBC Per 100 WBC 0 /100 WBCS (0.0-0.0); Neutrophils % (A) 65.9 %; Platelet Count 203 X 10*3/uL (140-440); RBC 3.97 X 10*6/uL (4.10-5.20); RDW 14.6 % (11.5-14.5); WBC 6.97 X 10*3/uL (4.50-10.00)
[2022-05-15 12:08] LABS: African American GFR (CKD) 61.6 (60.0-200.0); Anion Gap 12.8 mmol/L (10.00-18.00); BUN/Creat Ratio 14.6 Ratio (12.00-20.00); Blood Urea Nitrogen 14.6 mg/dL (9.0-27.0); Carbon Dioxide 23.2 mmol/L (20.0-27.5); Non-African American GFR(CKD) 53.2 (60.0-200.0); Potassium 3.9 mmol/L (3.5-5.5)
[2022-05-15] MEDS ORDERED: lisinopriL 10 MG TAB PO STA (15:33)
[2022-05-15] MEDS: ASPIRIN 81 MG PO SCH (20:07)
[2022-05-15] MEDS: MELATONIN 3 MG TABLET PO SCH (22:17)
[2022-05-15] MEDS: lisinopriL 20 MG TAB PO SCH (22:17)
[2022-05-16] MEDS: LEVOTHYROXINE 100 MCG TAB PO SCH (06:02)
[2022-05-16] MEDS: METOPROLOL TARTRATE 50 MG TAB PO SCH ×2 (08:32→20:43)
[2022-05-16] MEDS: ATORVASTATIN 40 MG TAB PO SCH (08:32)
[2022-05-16] MEDS: FOLIC ACID 1 MG TAB PO SCH (08:32)
[2022-05-16] MEDS: lisinopriL 20 MG TAB PO SCH ×2 (08:32→20:43)
[2022-05-16] MEDS: ENOXAPARIN 40 MG/0.4 ML SYRINGE SQ SCH (08:32)
[2022-05-16] MEDS ORDERED: lisinopriL 20 MG TAB PO SCH (09:00)
--- NOTE | 2022-05-16 11:19 | P.PN ---
Subjective Progress Note Date: 05/16/22 I am seeing the patient for the first time during this hospital visit. It seems the patient has leg weakness with falls and it was felt by Dr. Petty deconditioning but ordered MRI Lumbar which is pending. Per the nurse she continues to be unsteady yesterday. Please refer to Dr. Petty's notes for further details. Objective - Vital Signs Vital signs: Vital Signs Temp 97.8 F 05/16/22 07:00 Pulse 50 L 05/16/22 07:00 Resp 17 05/16/22 07:00 BP 199/74 05/16/22 07:00 Pulse Ox 97 05/16/22 07:00 FiO2 Intake & Output 05/15/22 05/16/22 05/16/22 18:59 06:59 18:59 Intake Total 118 60 Output Total 500 750 700 Balance -382 750 640 Intake: Oral 118 60 Output: Urine 500 750 700 Other: Voiding Method Bedside Commode Diaper Diaper External Catheter External Catheter # Voids 1 2 - Exam GENERAL: The patient is laying in bed and is not in acute distress. NEUROLOGICAL: Higher mental function: The patient is awake, alert, oriented to self. With option she stated she was in the hospital and correctly answered the correct name of hospital. She stated it was April but did not know the date or current year. , Patient is following commands. No aphasia and no neglect. Cranial nerves: The pupils are round, equal and reactive to light. Visual villasenor are full to confrontation throughout. Extraocular movement is intact no nystagmus is noted. Facial sensation is normal to touch throughout. The facial strength is normal throughout. Tongue is midline and moved [id number] without any difficulty. No dysarthria is noted. Shoulder shrug is normal bilaterally. Motor: The strength is 5 over 5 throughout. Normal tone and bulk. Cerebellum: Normal finger to nose heel to chin bilaterally. Sensation: Sensation is normal to touch throughout. Reflexes (right/left): 2+ uppers while lowers are 1+. Plantars are mute bilaterally. - Labs CBC & Chem 7: 05/15/22 07:57 05/15/22 07:57 Labs: Abnormal Lab Results - Last 24 Hours (Table) 05/15/22 05/15/22 Range/Units 07:57 07:57 RBC 3.97 L (4.10-5.20) X 10*6/uL Hgb 11.9 L (12.0-15.0) g/dL RDW 14.6 H (11.5-14.5) % Est GFR (CKD-EPI)NonAf 53.2 L (60.0-200.0) Microbiology - Last 24 Hours (Table) 05/14/22 11:54 Urine Culture - Preliminary Urine,Voided Group D Enterococcus Assessment and Plan Assessment: * Leg weakness, falls, possible due to deconditioning. Patient underwent right knee replacement on 02/25/2022, with very limited physical therapy. * Chronic low back pain, recently worse. Rule out spinal stenosis. * Forgetfulness, memory disturbance, probably due to mild cognitive impairment versus early dementia. * Vitamin B12 deficiency Plan: * MRI of lumbar spine, rule out spinal stenosis is pending. * I ordered MRI Brain because of patient confusion (which family feels more than baseline and questionable facial weakness) to rule out central cause/stroke. * B12 is 958, folate 15.60, TSH 0.596. * PT OT. Patient may benefit from subacute rehabilitation. * Patient has mild cognitive impairment versus early dementia. Dr. Petty suggested patient's son to have patient follow up with neurologist as an outpatient for more detailed neurocognitive evaluation and may benefit from cognitive enhancing medications. * Will defer the rest of medical management to the primary team. The plan is discussed with primary team (N.P.) and patient's nurse. Time with Patient: Less than 30
[2022-05-16] MEDS ORDERED: amLODIPine 10 MG TAB PO STA (12:07)
--- NOTE | 2022-05-16 12:29 | P.PN ---
Subjective Progress Note Date: 05/16/22 81-year-old female came in after falls. Patient also complained of back pain because of which there was concern about severe lumbar status post spinal stenosis because of which CT of the back was obtained which showed spinal canal [place] at the L4-5 with facet hypertrophy and degenerative changes at the T12-L1 mild thecal compression at L3-4 disc bulging. Patient's symptoms completely resolved at this time patient denied any back pain although patient is requiring a assistance translation may require subacute rehabilitation although patient insists on going home. She lives with her who had a recent cardiac stents. Patient doesn't have any tingling numbness or weakness in both legs that are focal but does have generalized weakness. MRI was of the lumbar spine was ordered by neurology. 05/16/2022 Patient is evaluated today on medical floor. Continues with acute confusion she is alert x 1 mostly. Family at bedsides does confirm confusion. Family also states that since her recent surgery she has not been the same mentation johnston. She has some right sided lower extremity weakness although she has recently right knee replacement on 02/25/22. Patient is currently denying dysuria, no urgency frequency. However she does have urine culture showing group D Enterococcus. Although there is no white count or fever symptoms of UTI in elderly can present with acute mental status changes. Neurology is following and patient does have evidence of spinal canal narrowing and follow up lumbar MRI for further evaluation scheduled for tomorrow. Discussed exam findings with neurology there is also question of a slight right facial droop and MRI brain is also recommended. Empiric antibiotics will be added pending finalized urine culture. Blood pressure is quite elevated today 190s systolic. Review of Systems Constitutional: Denied any fatigue denied any fever. Cardio vascular: denied any chest pain, palpitations Gastrointestinal: denied any nausea, vomiting, diarrhea Pulmonary: Denied any shortness of breath cough Neurologic denied any new focal deficits All inpatient medications were reviewed and appropriate changes in these medications as dictated in the interval history and assessment and plan. PHYSICAL EXAMINATION: GENERAL: The patient is alert and oriented x1-2, not in any acute distress. Well developed, well nourished. Confused HEENT: Pupils are round and equally reacting to light. EOMI. No scleral icterus. No conjunctival pallor. Normocephalic, atraumatic. No pharyngeal erythema. No thyromegaly. CARDIOVASCULAR: S1 and S2 present. No murmurs, rubs, or gallops. PULMONARY: Chest is clear to auscultation, no wheezing or crackles. ABDOMEN: Soft, nontender, nondistended, normoactive bowel sounds. No palpable organomegaly. MUSCULOSKELETAL: No joint swelling or deformity. healed incision right knee with decreased strength EXTREMITIES: No cyanosis, clubbing, or pedal edema. NEUROLOGICAL: Patient does have generalized weakness. There is some question of right facial droop. SKIN: No rashes. Assessment and plan -Altered mental status possible acute metabolic encephalopathy secondary to acute UTI with underlying mild cognitive impairment, rule out stroke as well. -Generalized weakness secondary to deconditioning physical therapy and occupational therapy evaluation possibility of subacute rehabilitation on Tuesday. -Acute urinary tract infection without sepsis present on admission, no white count, no fever, patient does have mental status changes which can be presenting symptoms for UTI in elderly, culture is showing group d enterococcus and anti biotics will be started pending finalized urine culture. -Mild cognitive impairment -Chronic low back pain with possibility of lumbar spinal stenosis and degenerative changes in the back MRI was ordered by neurology awaiting MRI -Hypertension, uncontrolled -Hyperlipidemia -coronary artery disease DVT prophylaxis: Lovenox GI prophylaxis: pepcid Full Code Plan Start IV antibiotics pending finalized urine culture. Amlodipine added for blood pressure control. Patient is pending lumbar MRI and also PT/OT evaluation. MRI brain also for follow up brain CT rule out stroke. Further recommendations p ending. Most likely will need subacute rehab on discharge. The impression and plan of care has been dictated by Jane Ramírez, Nurse Practitioner as directed. Dr. Brent MD I have performed a history and physical examination and medical decision making of this patient, discussed the same with the dictator, and agree with the dictators assessment and plan as written, documented as a scribe. Based on total visit time, I have performed more than 50% of this visit. Objective - Vital Signs Vital signs: Vital Signs Temp 97.8 F 05/16/22 07:00 Pulse 50 L 05/16/22 07:00 Resp 17 05/16/22 07:00 BP 199/74 05/16/22 07:00 Pulse Ox 97 05/16/22 07:00 FiO2 Intake & Output 05/15/22 05/16/22 05/16/22 18:59 06:59 18:59 Intake Total 118 60 Output Total 500 750 700 Balance -592 -679 -687 Intake: Oral 118 60 Output: Urine 500 750 700 Other: Voiding Method Bedside Commode Diaper Diaper External Catheter External Catheter # Voids 1 2 - Labs CBC & Chem 7: 05/15/22 07:57 05/15/22 07:57 Labs: Abnormal Lab Results - Last 24 Hours (Table) 05/15/22 Range/Units 07:57 Est GFR (CKD-EPI)NonAf 53.2 L (60.0-200.0) Microbiology - Last 24 Hours (Table) 05/14/22 11:54 Urine Culture - Preliminary Urine,Voided Group D Enterococcus Assessment and Plan Time with Patient: Less than 30
[2022-05-16] MEDS: AMPICILLIN-SULBACTAM 3 GM in SODIUM CHLORIDE 0.9% 100 ML IVPB SCH (18:01)
[2022-05-16] MEDS: ASPIRIN 81 MG PO SCH (20:43)
[2022-05-16] MEDS: FAMOTIDINE 20 MG TAB PO SCH (20:43)
[2022-05-16] MEDS: MELATONIN 3 MG TABLET PO SCH (20:43)
[2022-05-17] MEDS: AMPICILLIN-SULBACTAM 3 GM in SODIUM CHLORIDE 0.9% 100 ML IVPB SCH ×3 (00:44→17:03)
[2022-05-17] MEDS: LEVOTHYROXINE 100 MCG TAB PO SCH (06:39)
[2022-05-17] MEDS ORDERED: LOSARTAN 50 MG TAB PO STA (08:44)
[2022-05-17 08:52] LABS: Basophils # (A) 0.03 X 10*3/uL (0.00-0.10); Basophils % (A) 0.4 %; Eosinophils # (A) 0.12 X 10*3/uL (0.04-0.35); Eosinophils % (A) 1.7 %; HCT 39.9 % (37.2-46.3); HGB 12.3 g/dL (12.0-15.0); Immature Grans, Automated 0.3 %; MCH 29.7 pg (27.0-32.0); MCHC 30.8 g/dL (32.0-37.0); MCV 96.4 fL (80.0-97.0); Mean Platelet Volume 11.6 fL (9.5-12.2); Monocytes # (A) 0.42 X 10*3/uL (0.20-1.00); Monocytes % (A) 5.9 %; NRBC Per 100 WBC 0 /100 WBCS (0.0-0.0); Neutrophils # (A) 5.04 X 10*3/uL (1.80-7.70); Neutrophils % (A) 70.7 %; Platelet Count 209 X 10*3/uL (140-440); RBC 4.14 X 10*6/uL (4.10-5.20); RDW 14.6 % (11.5-14.5); WBC 7.13 X 10*3/uL (4.50-10.00)
[2022-05-17] MEDS: ENOXAPARIN 40 MG/0.4 ML SYRINGE SQ SCH (09:11)
[2022-05-17] MEDS: ATORVASTATIN 40 MG TAB PO SCH (09:12)
[2022-05-17] MEDS: FOLIC ACID 1 MG TAB PO SCH (09:12)
[2022-05-17] MEDS: METOPROLOL TARTRATE 50 MG TAB PO SCH ×2 (09:12→20:31)
[2022-05-17 09:23] LABS: African American GFR (CKD) 61.6 (60.0-200.0); Anion Gap 14.5 mmol/L (10.00-18.00); BUN/Creat Ratio 12.7 Ratio (12.00-20.00); Blood Urea Nitrogen 12.7 mg/dL (9.0-27.0); Calcium 8.8 mg/dL (8.7-10.3); Carbon Dioxide 22.5 mmol/L (20.0-27.5); Magnesium 1.7 mg/dL (1.5-2.4); Non-African American GFR(CKD) 53.2 (60.0-200.0); Potassium 3.6 mmol/L (3.5-5.5)
--- NOTE | 2022-05-17 10:56 | P.PN ---
Subjective Progress Note Date: 05/17/22 The patient is seen at bedside and is accompanied by her daughter as well her nurse. Per nurse she is more responsive today since start of antibiotic her UTI. Per the daughter since the patient had knee surgery she has not recovered fully and was getting better initially (after some time) then started declining again and complaining of knee pain. Objective - Vital Signs Vital signs: Vital Signs Temp 97.7 F 05/17/22 07:00 Pulse 53 L 05/17/22 07:00 Resp 16 05/17/22 07:00 BP 184/82 05/17/22 07:00 Pulse Ox 97 05/17/22 07:00 FiO2 Intake & Output 05/16/22 05/17/22 05/17/22 18:59 06:59 18:59 Intake Total 60 Output Total 700 1475 Balance -640 -1475 Intake: Oral 60 Output: Urine 700 1475 Other: Voiding Method Diaper External Catheter - Exam GENERAL: The patient is laying in bed and is not in acute distress. NEUROLOGICAL: Higher mental function: The patient is awake, alert, oriented to self. With option she stated she was in the hospital and correctly answered the correct name of hospital. She could not tell me correct year. , Patient is following simple commands and quicker in responding to questions compared to yesterday. No aphasia and no neglect. Cranial nerves: The pupils are round, equal and reactive to light. Visual villasenor are full to confrontation throughout. Extraocular movement is intact no nystagmus is noted. Facial sensation is normal to touch throughout. The facial strength is normal throughout. Tongue is midline and moved [id number] without any difficulty. No dysarthria is noted. Shoulder shrug is normal bilaterally. Motor: The strength is 5 over 5 throughout. Normal tone and bulk. Cerebellum: Normal finger to nose heel to chin bilaterally. Sensation: Sensation is normal to touch throughout. Reflexes (right/left): 2+ uppers while lowers are 1+. Plantars are mute bilaterally. - Labs CBC & Chem 7: 05/17/22 06:09 05/17/22 06:09 Labs: Abnormal Lab Results - Last 24 Hours (Table) 05/17/22 05/17/22 Range/Units 06:09 06:09 MCHC 30.8 L (32.0-37.0) g/dL RDW 14.6 H (11.5-14.5) % Est GFR (CKD-EPI)NonAf 53.2 L (60.0-200.0) Microbiology - Last 24 Hours (Table) 05/14/22 11:54 Urine Culture - Final Urine,Voided Enterococcus faecalis Assessment and Plan Assessment: * Leg weakness, falls, possible due to deconditioning. Patient underwent right knee replacement on 02/25/2022, with very limited physical therapy. * Chronic low back pain, recently worse. Rule out spinal stenosis. * Delerium due to underlying UTI * Acute UTI * Forgetfulness, memory disturbance, probably due to mild cognitive impairment versus early dementia. * Vitamin B12 deficiency Plan: * MRI of lumbar spine, rule out spinal stenosis is pending. * I ordered MRI Brain because of patient confusion to rule out central cause/stroke. Also ordered routine EEG because of confusion to rule out any seizure (seems very unlikely). * B12 is 958, folate 15.60, TSH 0.596. * PT OT. Patient may benefit from subacute rehabilitation. * Patient has mild cognitive impairment versus early dementia. Dr. Petty suggested patient's son to have patient follow up with neurologist as an outpatient for more detailed neurocognitive evaluation and may benefit from cognitive enhancing medications. * Will defer the rest of medical management to the primary team. The plan is discussed with the patient's daughter who is at bedside and primary team. Time with Patient: Less than 30
--- NOTE | 2022-05-17 14:31 | P.PN ---
Subjective Progress Note Date: 05/17/22 HISTORY OF PRESENT ILLNESS 81-year-old female came in after falls. Patient also complained of back pain b ecause of which there was concern about severe lumbar status post spinal stenosis because of which CT of the back was obtained which showed spinal canal Yordan at the L4-5 with facet hypertrophy and degenerative changes at the T12-L1 mild thecal compression at L3-4 disc bulging. Patient's symptoms completely resolved at this time patient denied any back pain although patient is requiring a assistance translation may require subacute rehabilitation although patient insists on going home. She lives with her who had a recent cardiac stents. Patient doesn't have any tingling numbness or weakness in both legs that are focal but does have generalized weakness. MRI was of the lumbar spine was ordered by neurology. 05/16/2022 Patient is evaluated today on medical floor. Continues with acute confusion she is alert x 1 mostly. Family at bedsides does confirm confusion. Family also sta marni that since her recent surgery she has not been the same mentation johnston. She has some right sided lower extremity weakness although she has recently right knee replacement on 02/25/22. Patient is currently denying dysuria, no urgency frequency. However she does have urine culture showing group D Enterococcus. Although there is no white count or fever symptoms of UTI in elderly can present with acute mental status changes. Neurology is following and patient does have evidence of spinal canal narrowing and follow up lumbar MRI for further evaluation scheduled for tomorrow. Discussed exam findings with neurology there is also question of a slight right facial droop and MRI brain is also ruslan mmended. Empiric antibiotics will be added pending finalized urine culture. Blood pressure is quite elevated today 190s systolic. 05/17: REVIEW OF SYSTEMS Constitutional: No fever, no chills, no night sweats. No weight change. No weakness, fatigue or lethargy. No daytime sleepiness. EENT: No headache. No blurred vision or double vision, no loss of vision. No loss of Hearing, no ringing in the ears, no dizziness. No nasal drainage or congestion. No epistaxis. No sore throat. Lungs: No shortness of breath, cough, no sputum production. No wheezing. Cardiovascular: No chest pain, no lower extremity edema. No palpitations. No paroxysmal nocturnal dyspnea. No orthopnea. No lightheadedness or dizziness. No syncopal episodes. Abdominal: No abdominal pain. No nausea, vomiting. No diarrhea. No constipation. No bloody or tarry stools. No loss of appetite. Genitourinary: No dysuria, increased frequency, urgency. No urinary retention. Musculoskeletal: No myalgias. No muscle weakness, no gait dysfunction, no frequent falls. No back pain. No neck pain. Integumentary: No wounds, no lesions. No rash or pruritus. No unusual bruising. No change in hair or nails. Neurologic: No aphasia. No facial droop. No change in mentation. No head injury. No headache. No paralysis. No paresthesia. Psychiatric: No depression. No anxiety. No mood swings. Endocrine: No abnormal blood sugars. No weight change. No excessive sweating or thirst. No cold intolerance. PHYSICAL EXAMINATION: GENERAL: The patient is alert and oriented x1-2, not in any acute distress. Well developed, well nourished. Confused HEENT: Pupils are round and equally reacting to light. EOMI. No scleral icterus. No conjunctival pallor. Normocephalic, atraumatic. No pharyngeal erythema. No thyromegaly. CARDIOVASCULAR: S1 and S2 present. No murmurs, rubs, or gallops. PULMONARY: Chest is clear to auscultation, no wheezing or crackles. ABDOMEN: Soft, nontender, nondistended, normoactive bowel sounds. No palpable organomegaly. MUSCULOSKELETAL: No joint swelling or deformity. healed incision right knee with decreased strength EXTREMITIES: No cyanosis, clubbing, or pedal edema. NEUROLOGICAL: Patient does have generalized weakness. There is some question of right facial droop. SKIN: No rashes. Assessment and plan 1. Metabolic encephalopathy secondary to acute urinary tract infection, i mproving. Neurology consult appreciated. Patient is to have MRI of the brain and EEG. 2. Lower extremity weakness and falls secondary to deconditioning and right knee replacement not fully recovered. Patient has been seen by neurology and MRI of the lumbar spine was ordered. 3. Generalized weakness. PT and OT consults with plan for subacute rehab once arrangements are completed. 4. Acute urinary tract infection and sepsis. Continue patient on Unasyn 3 g IV piggyback every 8 hours. 5. Chronic low back pain. MRI has been ordered by neurology. 6. Hypertension. Continue patient on losartan 100 mg daily, Lopressor 50 mg twice daily. 7. Hyperlipidemia. Continue atorvastatin 40 mg daily 8. Coronary artery disease. Continue patient on aspirin 81 mg daily, Lipitor 40 mg daily, Lopressor 50 mg twice daily 9. DVT prophylaxis. Continue patient on Lovenox subcu. 10. GI prophylaxis. Continue Pepcid. 11. Hypothyroidism. Continue levothyroxine 100 g daily. DISCHARGE PLAN Subacute rehab at [facility] or [facility]. Impression and plan of care have been directed as dictated by the signing physician. Kym Lo nurse practitioner acting as scribe for signing physician. Objective - Vital Signs Vital signs: Vital Signs Temp 97.7 F 05/17/22 07:00 Pulse 53 L 05/17/22 07:00 Resp 16 05/17/22 07:00 BP 184/82 05/17/22 07:00 Pulse Ox 97 05/17/22 07:00 FiO2 Intake & Output 05/16/22 05/17/22 05/17/22 18:59 06:59 18:59 Intake Total 60 Output Total 700 1475 Balance -640 -1475 Intake: Oral 60 Output: Urine 700 1475 Other: Voiding Method Diaper External Catheter - Labs CBC & Chem 7: 05/17/22 06:09 05/17/22 06:09 Labs: Abnormal Lab Results - Last 24 Hours (Table) 05/17/22 05/17/22 Range/Units 06:09 06:09 MCHC 30.8 L (32.0-37.0) g/dL RDW 14.6 H (11.5-14.5) % Est GFR (CKD-EPI)NonAf 53.2 L (60.0-200.0) Microbiology - Last 24 Hours (Table) 05/14/22 11:54 Urine Culture - Final Urine,Voided Enterococcus faecalis
--- NOTE | 2022-05-17 14:51 | MR ---
EXAMINATION TYPE: MR brain wo/w con DATE OF EXAM: 05/17/2022 COMPARISON: CT brain 3 days ago HISTORY: Facial weakness and confusion TECHNIQUE: Multiplanar, multisequence images of the brain and brainstem is performed without and with IV contras t, utilizing 7 mL intravenous Gadavist . FINDINGS: Diffusion weighted images demonstrate no evidence of a recent infarct or other diffusion ab normality. There is moderate ventricular and sulcal prominence redemonstrated. There are confluent ar eas of T2 hyperintensity in the deep and periventricular white matter. Areas of T2 hyperintensity als o identified in the jordan. T2 Star weighted images show no suspicious intraparenchymal blood product. Midline structures demonstrate normal morphology. The craniocervical junction appears within normal limits. Post contrast images demonstrate no abnormal enhancing mass. The dural venous sinuses appear patent. The visualized sinuses are clear and the globes are intact. Increased fluid signal left mast oid air cells is present. IMPRESSION: 1. No MRI evidence for a recent infarct. 2. There is moderate diffuse cerebral atrophy and moderate to advanced chronic small vessel ischemic change. No abnormal enhancement is seen.
--- NOTE | 2022-05-17 14:59 | MR ---
EXAMINATION TYPE: MR lumbar spine wo con DATE OF EXAM: 05/17/2022 COMPARISON: CT lumbar spine 3 days ago. HISTORY: Pain, stenosis TECHNIQUE: Multiplanar, multisequence imaging of the lumbar spine is performed without IV contrast. FINDINGS: Sagittal images of the lumbar spine show vertebral body heights to remain satisfactory. The re is grade 1 anterolisthesis L4 on L5. Multilevel disc desiccation. Moderate to advanced disc space narrowing L5-S1 level with vacuum disc phenomenon and heterogeneous Modic type II endplate changes. T he conus medullaris is somewhat low-lying at mid L2 level. No suspicious clumping of lumbosacral nerv e roots or abnormal signal in the conus. Axial images at T12-L1 level shows focal right paracentral disc protrusion effacing the anterior thec al sac. Patent bilateral neural foramina mild facet arthropathy bilaterally. Axial images at L1-L2 level shows mild to moderate broad disc bulge effacing the anterior thecal sac with mild to moderate facet arthropathy and ligamentum flavum hypertrophy. Posterior lateral thecal s ac. There is mild right-sided neural foraminal narrowing. Axial images L2-L3 level shows mild facet arthropathy bilaterally. Spinal canal is preserved. Axial images at L3-L4 level shows mild broad-based disc bulge minimally effaces the anterior thecal s ac. There is mild to moderate facet arthropathy and ligamentum flavum hypertrophy effacing the cream gatherer ior lateral thecal sac. There is mild left-sided anterior inferior neural foraminal narrowing. Axial images at L4-L5 level shows spondylolisthesis with moderate facet arthropathy and ligamentum fl avum hypertrophy. There is moderate left-sided inferior neural foraminal narrowing. Right-sided neura l foramen is patent. Axial images at L5-S1 level show advanced facet arthropathy bilaterally. There is right foraminal dis c protrusion encroaching on the inferior margin of the right L5 nerve axial image 3 and sagittal imag e 13. Left-sided neural foramina is patent. Spinal canal is preserved. The paraspinal muscle bulk is maintained. IMPRESSION: Subtle spondylolisthesis L4-L5 level. Multilevel degenerative changes as detailed above. No acute findings are evident.
[2022-05-17] MEDS: ASPIRIN 81 MG PO SCH (20:31)
[2022-05-17] MEDS: FAMOTIDINE 20 MG TAB PO SCH (20:31)
[2022-05-17] MEDS: MELATONIN 3 MG TABLET PO SCH (20:31)
[2022-05-18] MEDS: AMPICILLIN-SULBACTAM 3 GM in SODIUM CHLORIDE 0.9% 100 ML IVPB SCH ×3 (00:12→15:39)
--- NOTE | 2022-05-18 01:19 | EEG ---
ELECTROENCEPHALOGRAM REPORT CLINICAL HISTORY: This is an 81-year-old woman with altered mental status. The video EEG is obtained to evaluate for seizure epileptiform activity. RELEVANT MEDICATION: The patient is not on any antiepileptic drugs. DESCRIPTION: Wakefulness is only obtained. During awake state, the posterior dominant rhythm consists of 7 to 8 Hz activity. At times, the background consists of diffuse delta activity. There is no physiological stage 2 sleep architecture. There is no focal slowing. Interictal and ictal is none. ACTIVATION PROCEDURE: Photic stimulation did not evoke a positive driving response. There is no abnormality during the photic stimulation. Hyperventilation is not performed. CLINICAL INTERPRETATION: This is an abnormal routine EEG. The background slowing is suggestive of mild-to- moderate encephalopathy. Otherwise, there is no focal slowing, epileptiform discharge or seizure on the EEG. Clinical correlation is recommended. PABLO / ARIANNE: [id number] / MTDD
[2022-05-18] MEDS: LEVOTHYROXINE 100 MCG TAB PO SCH (05:59)
[2022-05-18 08:45] VITALS: BP 172/77; PULSE 53; RESP 16; TEMP 98
[2022-05-18] MEDS ORDERED: LOSARTAN 50 MG TAB PO SCH (09:00)
[2022-05-18] MEDS: FOLIC ACID 1 MG TAB PO SCH (09:20)
[2022-05-18] MEDS: METOPROLOL TARTRATE 50 MG TAB PO SCH (09:20)
[2022-05-18] MEDS: ATORVASTATIN 40 MG TAB PO SCH (09:20)
[2022-05-18] MEDS: ENOXAPARIN 40 MG/0.4 ML SYRINGE SQ SCH (09:20)
--- NOTE | 2022-05-18 12:49 | P.DS ---
Providers Date of admission: 05/14/22 14:32 Expected date of discharge: 05/18/22 Attending physician: Schuyler Barger Consults: 05/14/22 14:32 Consult Physician Urgent Consulting Provider: Steph Petty Consult Reason/Comments: acute/subacute encephalopathy Do you want consulting provider notified?: Yes 05/18/22 08:44 Consult Physician Routine Consulting Provider: Hedy Jamil Consult Reason/Comments: please review MRI and advise Do you want consulting provider notified?: Yes Primary care physician: Schuyler Barger Hospital Course: HISTORY OF PRESENT ILLNESS 81-year-old female came in after falls. Patient also complained of back pain because of which there was concern about severe lumbar status post spinal stenosis because of which CT of the back was obtained which showed spinal canal Yordan at the L4-5 with facet hypertrophy and degenerative changes at the T12-L1 mild thecal compression at L3-4 disc bulging. Patient's symptoms completely resolved at this time patient denied any back pain although patient is requiring a assistance translation may require subacute rehabilitation although patient insists on going home. She lives with her who had a recent cardiac stents. Patient doesn't have any tingling numbness or weakness in both legs that are focal but does have generalized weakness. MRI was of the lumbar spine was ordered by neurology. 05/16/2022 Patient is evaluated today on medical floor. Continues with acute confusion she is alert x 1 mostly. Family at bedsides does confirm confusion. Family also states that since her recent surgery she has not been the same mentation johnston. She has some right sided lower extremity weakness although she has recently right knee replacement on 02/25/22. Patient is currently denying dysuria, no urgency frequency. However she does have urine culture showing group D Enterococcus. Although there is no white count or fever symptoms of UTI in elderly can present with acute mental status changes. Neurology is following and patient does have evidence of spinal canal narrowing and follow up lumbar MRI for further evaluation scheduled for tomorrow. Discussed exam findings with neurology there is also question of a slight right facial droop and MRI brain is also recommended. Empiric antibiotics will be added pending finalized urine culture. Blood pressure is quite elevated today 190s systolic. 05/17: patient is scheduled for MRI of the lumbar spine, MRI of the brain and EEG today. She has been followed by neurology. THerapy is recommending subacute rehab and daughter would like [facility] or [facility]. Patient continues to have confusion. she remains afebrile, heart rate in the 50s, blood pressure 159/71, pulse ox 96% on room air. Anticipate probable discharge tomorrow after testing is completed. 05/18: urine culture finalized with enterococcus. MRI of the lumbar spine reveals subtle spondylolisthesis L4-5 level. Multilevel degenerative changes. No acute findings. MRI of the brain reveals no evidence of recent infarct. Moderate diffuse cerebral atrophy and moderate to advanced chronic small vessel ischemic change. EEG revealed abnormal but no epileptiform discharges Case discussed with orthopedic spine and plan is for outpatient follow-up. Patient will be discharged once arrangements are completed. Discharge diagnoses 1. Metabolic encephalopathy secondary to acute urinary tract infection, improving. 2. Lower extremity weakness and falls secondary to deconditioning and right knee replacement not fully recovered. 3. Generalized weakness. 4. Acute urinary tract infection and sepsis. 5. Chronic low back pain. 6. Hypertension. 7. Hyperlipidemia. 8. Coronary artery disease. 9. Hypothyroidism. DISCHARGE PLAN Subacute rehab at [facility] Greater than 35 minutes was utilized and coordinating patient's discharge. Impression and plan of care have been directed as dictated by the signing physician. Kym Lo nurse practitioner acting as scribe for signing physician. Patient Condition at Discharge: Stable Plan - Discharge Summary Discharge Rx Participant: No New Discharge Prescriptions: New Melatonin 3 mg PO HS tab Losartan [Cozaar] 100 mg PO DAILY tab Folic Acid 1 mg PO DAILY tab Amoxicillin 500 mg PO Q8H #15 capsule Continue Aspirin 81 mg PO HS Levothyroxine Sodium [Synthroid] 100 mcg PO DAILY Metoprolol Tartrate [Lopressor] 50 mg PO BID Atorvastatin [Lipitor] 40 mg PO DAILY Cyanocobalamin [Vitamin B-12 Injection] 1,000 mcg SQ WEEKLY Discontinued Enalapril Maleate [Vasotec] 5 mg PO BID Discharge Medication List Aspirin 81 mg PO HS 11/01/18 [History] Atorvastatin [Lipitor] 40 mg PO DAILY 11/01/18 [History] Levothyroxine Sodium [Synthroid] 100 mcg PO DAILY 11/01/18 [History] Metoprolol Tartrate [Lopressor] 50 mg PO BID 11/01/18 [History] Cyanocobalamin [Vitamin B-12 Injection] 1,000 mcg SQ WEEKLY 05/14/22 [History] Amoxicillin 500 mg PO Q8H #15 capsule 05/18/22 [Rx] Folic Acid 1 mg PO DAILY tab 05/18/22 [Rx] Losartan [Cozaar] 100 mg PO DAILY tab 05/18/22 [Rx] Melatonin 3 mg PO HS tab 05/18/22 [Rx] Follow up Appointment(s)/Referral(s): Alex Burnette PAC [PHYSICIAN CENTER MANAGER] - 3 Weeks Schuyler Barger MD [Primary Care Provider] - 1 Week (at [facility]) Discharge Disposition: TRANSFER TO SNF/ECF
--- NOTE | 2022-05-18 15:35 | P.PN ---
Subjective Progress Note Date: 05/18/22 The patient is seen at bedside and is accompanied by her daughter who feels she is about the same. Objective - Vital Signs Vital signs: Vital Signs Temp 98.0 F 05/18/22 07:00 Pulse 53 L 05/18/22 14:00 Resp 16 05/18/22 14:00 BP 172/77 05/18/22 07:00 Pulse Ox 98 05/18/22 07:00 FiO2 Intake & Output 05/17/22 05/18/22 05/18/22 18:59 06:59 18:59 Intake Total 200 Output Total 350 400 Balance -350 -400 200 Intake: Oral 200 Output: Urine 350 400 Other: Voiding Method Diaper Diaper Diaper External Catheter External Catheter External Catheter # Voids 1 - Exam GENERAL: The patient is laying in bed and is not in acute distress. NEUROLOGICAL: Higher mental function: The patient is awake, alert, oriented to self. With option she stated she was in the hospital and correctly answered the correct name of hospital. She could not tell me correct year. , Patient is following simple commands and quicker in responding to questions compared to yesterday. No aphasia and no neglect. Cranial nerves: The pupils are round, equal and reactive to light. Visual villasenor are full to confrontation throughout. Extraocular movement is intact no nystagmus is noted. Facial sensation is normal to touch throughout. The facial strength is normal throughout. Tongue is midline and moved [id number] without any difficulty. No dysarthria is noted. Shoulder shrug is normal bilaterally. Motor: The strength is 5 over 5 throughout. Normal tone and bulk. Cerebellum: Normal finger to nose heel to chin bilaterally. Sensation: Sensation is normal to touch throughout. Reflexes (right/left): 2+ uppers while lowers are 1+. Plantars are mute bilaterally. - Labs CBC & Chem 7: 05/17/22 06:09 05/17/22 06:09 Assessment and Plan Assessment: * Leg weakness, falls, possible due to deconditioning. Patient underwent right knee replacement on 02/25/2022, with very limited physical therapy. * Chronic low back pain, recently worse. Rule out spinal stenosis. * Delerium due to underlying UTI * Acute UTI * Forgetfulness, memory disturbance, probably due to mild cognitive impairment versus early dementia. * Vitamin B12 deficiency Plan: * MRI of lumbar spine: It is reported as subtle spondylolithesis L4-L5 level. Multilevel degenerative changes. No acute findings are evidence. Has L5-S1 advanced face arthropathy bilaterally. Right foraminal protrusion enroaching on inferior margin of right L5 nerve axial image. Recommend to follow-up with Orthopedic team as oupatient. * MRI Brain: It is reported as no MRI evidence for recent infarct. There is moderate diffuse cerebral atrophy and moderate to advanced chronic small vessel ischemic change. No abnormal enhancement seen. I personally reviewed the MRI and agree with the report. * Routine EEG: It is abnormal. The background slowing suggestive of mild to moderate the encephalopathy. Otherwise there is no focal slowing, epileptiform discharges or seizure on the EEG. * B12 is 958, folate 15.60, TSH 0.596. * PT OT. Patient may benefit from subacute rehabilitation. * Patient has mild cognitive impairment versus early dementia. Dr. Petty suggested patient's son to have patient follow up with neurologist as an outpatient for more detailed neurocognitive evaluation and may benefit from cognitive enhancing medications. * Will defer the rest of medical management to the primary team. * Recommend for the patient to follow-up with neurologist as outpatient within 2 weeks. The plan is discussed with the patient's daughter who is at bedside and her nurse. No additional neurological work-up. Please notify if any further concerns. Time with Patient: Less than 30
[2022-05-21] MEDS ORDERED: CYANOCOBALAMIN 1,000 MCG/ML 1 ML VIAL SQ SCH (09:00)
== END 2022-05-18 16:35 ==
LOC: EC 09:34 → 6NMEDSUR 14:32
PROVIDERS: ADMIT Internal Medicine; ATTEND Internal Medicine
DX: N39.0 Urinary tract infection, site not specified (principal); G93.41 Metabolic encephalopathy; R53.1 Weakness; G89.29 Other chronic pain; M54.50 Low back pain, unspecified; I10 Essential (primary) hypertension; E78.5 Hyperlipidemia, unspecified; I25.10 Atherosclerotic heart disease of native coronary artery without angina pectoris; E03.9 Hypothyroidism, unspecified; E11.9 Type 2 diabetes mellitus without complications; M19.90 Unspecified osteoarthritis, unspecified site; E53.8 Deficiency of other specified B group vitamins; R29.6 Repeated falls; I25.2 Old myocardial infarction; Z20.822 Contact with and (suspected) exposure to COVID-19; Z96.651 Presence of right artificial knee joint; Z87.891 Personal history of nicotine dependence; Z79.82 Long term (current) use of aspirin; Z79.899 Other long term (current) drug therapy; Z79.890 Hormone replacement therapy
CPT/HCPCS: 96365; 96366 ×3; 96372 ×4; 99285; 36415; 95816; 93005; 97530; 97162; 97167; 80053; 80048 ×2; 84443; 82607; 82746; 83735; 84484; 85025 ×3; 85610; 85730; 81001; 80306; 80143; 87086; 87077; 87186; 87635; 80179; 71046; 72131; 70450; 70553; 72148; G0378 ×5; J1650 ×4; J0295 ×3; A9585

== ENCOUNTER 2022-09-21 11:12 | Emergency (ER) | payer MEDICARE ==
[2022-09-21 11:18] VITALS: TEMP 97.9
--- NOTE | 2022-09-21 12:30 | ED ---
General Adult HPI - General Chief complaint: Weakness Stated complaint: weakness high blood pressure Time Seen by Provider: 09/21/22 11:22 Source: patient, RN notes reviewed Mode of arrival: wheelchair Limitations: no limitations - History of Present Illness Initial comments: 82-year-old female presents to the emergency department with chief complaint of weakness. She states that she has been experiencing generalized weakness for the past 3 days. She also complains of lightheadedness when she is walking which started 3 days ago. She is currently residing in an [facility] was been taking her blood pressure for the past 2-3 days. Patient was brought blood pressure readings from the facility which included blood pressures ranging from 180-210 systolic. She states that she went to see her primary care doctor 5 days ago who did lab work. She does not remember her exact blood pressure at the time of the visit. Admits to urinary frequency. Denies dysuria, fever. - Related Data Home Medications Medication Instructions Recorded Confirmed Aspirin 81 mg PO DAILY 11/01/18 09/21/22 Atorvastatin [Lipitor] 40 mg PO HS 11/01/18 09/21/22 Levothyroxine Sodium [Synthroid] 100 mcg PO [id number] 11/01/18 09/21/22 Metoprolol Tartrate [Lopressor] 50 mg PO BID 11/01/18 09/21/22 Cholecalciferol [Vitamin D3 (125 125 mcg PO DAILY 09/21/22 09/21/22 Mcg = 5000 Iu)] Cyanocobalamin (Vitamin B-12) 1,000 mcg PO DAILY 09/21/22 09/21/22 [Vitamin B-12] Losartan Potassium 100 mg PO DAILY 09/21/22 09/21/22 Memantine [Namenda] 10 mg PO BID 09/21/22 09/21/22 Multivitamins, Thera [Multivitamin 1 tab PO DAILY 09/21/22 09/21/22 (formulary)] Psyllium Husk (with Sugar) 6 gm PO DAILY 09/21/22 09/21/22 [Metamucil Powder] Previous Rx's Medication Instructions Recorded Folic Acid 1 mg PO DAILY tab 05/18/22 Melatonin 3 mg PO HS tab 05/18/22 Sulfamethox-Tmp 800-160Mg [Bactrim 1 each PO Q12HR #14 tab 09/21/22 Ds] Allergies Allergy/AdvReac Type Severity Reaction Status Date / Time No Known Allergies Allergy Verified 09/21/22 13:09 Review of Systems ROS Statement: Those systems with pertinent positive or pertinent negative responses have been documented in the HPI. ROS Other: All systems not noted in ROS Statement are negative. Past Medical History Past Medical History: Diabetes Mellitus, Hyperlipidemia, Hypertension, Myocardial Infarction (ND), Osteoarthritis (OA), Thyroid Disorder Additional Past Medical History / Comment(s): "small heart attack in 1997", abd. pain recently Last Myocardial Infarction Date:: 1997 History of Any Multi-Drug Resistant Organisms: None Reported Past Surgical History: Appendectomy, Breast Surgery, Hysterectomy, Joint Replacement Additional Past Surgical History / Comment(s): AORTIC STENT, TOTAL LEFT KNEE x2, LASER SURGERY- EYES, CATARACT SURGERY, BREAST BIOPSY RIGHT BREAST Past Anesthesia/Blood Transfusion Reactions: No Reported Reaction Past Psychological History: No Psychological Hx Reported Smoking Status: Former smoker Past Alcohol Use History: Rare Past Drug Use History: None Reported - Past Family History Mother Family Medical History: No Reported History Additional Family Medical History / Comment(s): No history of premature CAD and her family General Exam Limitations: no limitations General appearance: alert, in no apparent distress Head exam: Present: atraumatic, normocephalic, normal inspection Eye exam: Present: normal appearance, PERRL, EOMI. Absent: scleral icterus, conjunctival injection, periorbital swelling ENT exam: Present: normal exam, mucous membranes moist Neck exam: Present: normal inspection. Absent: tenderness, meningismus, lymp hadenopathy Respiratory exam: Present: normal lung sounds bilaterally. Absent: respiratory distress, wheezes, rales, rhonchi, stridor Cardiovascular Exam: Present: regular rate, normal rhythm, normal heart sounds. Absent: systolic murmur, diastolic murmur, rubs, gallop, clicks Course Vital Signs 09/21/22 09/21/22 09/21/22 11:15 13:19 15:00 Temperature 97.9 F Pulse Rate 52 L 54 L 53 L Respiratory 20 18 Rate Blood Pressure 174/80 197/88 164/100 O2 Sat by Pulse 97 95 96 Oximetry 09/21/22 09/21/22 15:10 15:37 Temperature Pulse Rate 54 L 64 Respiratory 18 20 Rate Blood Pressure 149/72 120/62 O2 Sat by Pulse 96 96 Oximetry Medical Decision Making - Medical Decision Making Was pt. sent in by a medical professional or institution ([facility] Robins, STATISTICAL TYPIST, urgent care, hospital, or long term...) When possible be specific @ -No Did you speak to anyone other than the patient for history (EMS, parent, family, police, friend...)? What history was obtained from this source @ -No Did you review nursing and triage notes (agree or disagree)? Why? @ -I reviewed and agree with nursing and triage notes Were old charts reviewed (outside hosp., previous admission, EMS record, old EKG, old radiological studies, urgent care reports/EKG's, long term records)? Report findings @ -No old charts were reviewed Differential Diagnosis (chest pain, altered mental status, abdominal pain women, abdominal pain men, vaginal bleeding, weakness, fever, dyspnea, syncope, headache, dizziness, GI bleed, back pain, seizure, CVA, palpatations, mental health, musculoskeletal)? @ -Differential Weakness: Hypoglycemia, shock, sepsis, hyponatremia, anemia, infection, ND, ETOH, adverse medicine reaction, overdose, stroke, this is not meant to be an all-inclusive list. EKG interpreted by me (3pts min.). @ -EKG at 1125 shows bradycardia rate 53, QRS 86, QTQTc [id number], EKG compared to prior EKG X-rays interpreted by me (1pt min.). @ -Chest x-ray shows no acute process CT interpreted by me (1pt min.). @ -None done U/S interpreted by me (1pt. min.). @ -None done What testing was considered but not performed or refused? (CT, X-rays, U/S, labs)? Why? @ -None What meds were considered but not given or refused? Why? @ -None Did you discuss the management of the patient with other professionals (professionals i.e. MERLE Robins, STATISTICAL TYPIST, lab, RT, psych nurse, social services specialist, apparel embroidery digitizer, teacher, safety and security officer, caseworker)? Give summary @ -No Was smoking cessation discussed for >3mins.? @ -No Was critical care preformed (if so, how long)? @ -No Were there social determinants of health that impacted care today? How? (Homelessness, low income, unemployed, alcoholism, drug addiction, transportation, low edu. Level, literacy, decrease access to med. care, penitentiary, rehab)? @ -No Was there de-escalation of care discussed even if they declined (Discuss DNR or withdrawal of care, Hospice)? DNR status @ -No What co-morbidities impacted this encounter? (DM, HTN, Smoking, COPD, CAD, Cancer, CVA, ARF, Chemo, Hep., AIDS, mental health diagnosis, sleep apnea, morbid obesity)? @ -None Was patient admitted / discharged? Hospital course, mention meds given and route , prescriptions, significant lab abnormalities, going to OR and other pertinent info. @ -Discharged. Patient presented to the emergency department with weakness x3 days and high blood pressure readings. Patient went to see her primary care recently and had blood work and a UA. CBC and CMP obtained CBC within normal limits, CMP within normal limits, UA shows large leukocytes, negative nitrites, recent UA from PCP showed Leukocytes and nitrites, culture showed gram negative rods. Patient given hydralazine and rocephin. Patient sent prescription for UTI. Advised to follow up with PCP for hypertension management. Discussed case with Dr. Li. Patient discharged in stable condition. Undiagnosed new problem with uncertain prognosis? @ -No Drug Therapy requiring intensive monitoring for toxicity (Heparin, Nitro, I nsulin, Cardizem)? @ -No Were any procedures done? @ -No Diagnosis/symptom? @ -UTI Acute, or Chronic, or Acute on Chronic? @ -Acute Uncomplicated (without systemic symptoms) or Complicated (systemic symptoms)? @ -Uncomplicated Side effects of treatment? @ -No Exacerbation, Progression, or Severe Exacerbation? @ -No Poses a threat to life or bodily function? How? (Chest pain, USA, ND, pneumonia, PE, COPD, DKA, ARF, appy, cholecystitis, CVA, Diverticulitis, Homicidal, Suicidal, threat to staff... and all critical care pts) @ -No - Lab Data Result diagrams: 09/21/22 12:13 09/21/22 12:13 Lab Results 09/21/22 09/21/22 09/21/22 Range/Units 12:13 12:13 12:13 WBC 8.2 (3.8-10.6) k/uL RBC 4.11 (3.80-5.40) m/uL Hgb 12.8 (11.4-16.0) gm/dL Hct 38.4 (34.0-46.0) % MCV 93.5 D (80.0-100.0) fL MCH 31.1 (25.0-35.0) pg MCHC 33.2 (31.0-37.0) g/dL RDW 14.1 (11.5-15.5) % Plt Count 210 (150-450) k/uL MPV 8.9 Neutrophils % 63 % Lymphocytes % 28 % Monocytes % 5 % Eosinophils % 3 % Basophils % 0 % Neutrophils # 5.2 (1.3-7.7) k/uL Lymphocytes # 2.3 (1.0-4.8) k/uL Monocytes # 0.4 (0-1.0) k/uL Eosinophils # 0.3 (0-0.7) k/uL Basophils # 0.0 (0-0.2) k/uL PT 10.2 (9.0-12.0) sec INR 1.0 (<1.2) APTT 22.9 (22.0-30.0) sec Sodium 140 (137-145) mmol/L Potassium 4.0 (3.5-5.1) mmol/L Chloride 104 (98-107) mmol/L Carbon Dioxide 28 (22-30) mmol/L Anion Gap 8 mmol/L BUN 18 H (7-17) mg/dL Creatinine 1.01 (0.52-1.04) mg/dL Est GFR (CKD-EPI)AfAm 60 (>60 ml/min/1.73 sqM) Est GFR (CKD-EPI)NonAf 52 (>60 ml/min/1.73 sqM) Glucose 114 H (74-99) mg/dL Plasma Lactic Acid [place] (0.7-2.0) mmol/L Calcium 9.8 (8.4-10.2) mg/dL Total Bilirubin 0.6 (0.2-1.3) mg/dL AST 26 (14-36) U/L ALT 23 (4-34) U/L Alkaline Phosphatase 58 (38-126) U/L Troponin I (0.000-0.034) ng/mL Total Protein 7.2 (6.3-8.2) g/dL Albumin 4.2 (3.5-5.0) g/dL Urine Color Urine Appearance (Clear) Urine pH (5.0-8.0) Ur Specific Bruner (1.001-1.035) Urine Protein (Negative) Urine Glucose (UA) (Negative) Urine Ketones (Negative) Urine Blood (Negative) Urine Nitrite (Negative) Urine Bilirubin (Negative) Urine Urobilinogen (<2.0) mg/dL Ur Leukocyte Esterase (Negative) Urine RBC (0-5) /hpf Urine WBC (0-5) /hpf Ur Squamous Epith Cells (0-4) /hpf Amorphous Sediment (None) /hpf Urine Bacteria (None) /hpf Urine Mucus (None) /hpf 09/21/22 09/21/22 09/21/22 Range/Units 12:13 12:13 12:13 WBC (3.8-10.6) k/uL RBC (3.80-5.40) m/uL Hgb (11.4-16.0) gm/dL Hct (34.0-46.0) % MCV (80.0-100.0) fL MCH (25.0-35.0) pg MCHC (31.0-37.0) g/dL RDW (11.5-15.5) % Plt Count (150-450) k/uL MPV Neutrophils % % Lymphocytes % % Monocytes % % Eosinophils % % Basophils % % Neutrophils # (1.3-7.7) k/uL Lymphocytes # (1.0-4.8) k/uL Monocytes # (0-1.0) k/uL Eosinophils # (0-0.7) k/uL Basophils # (0-0.2) k/uL PT (9.0-12.0) sec INR (<1.2) APTT (22.0-30.0) sec Sodium (137-145) mmol/L Potassium (3.5-5.1) mmol/L Chloride (98-107) mmol/L Carbon Dioxide (22-30) mmol/L Anion Gap mmol/L BUN (7-17) mg/dL Creatinine (0.52-1.04) mg/dL Est GFR (CKD-EPI)AfAm (>60 ml/min/1.73 sqM) Est GFR (CKD-EPI)NonAf (>60 ml/min/1.73 sqM) Glucose (74-99) mg/dL Plasma Lactic Acid [place] 0.8 (0.7-2.0) mmol/L Calcium (8.4-10.2) mg/dL Total Bilirubin (0.2-1.3) mg/dL AST (14-36) U/L ALT (4-34) U/L Alkaline Phosphatase (38-126) U/L Troponin I <0.012 (0.000-0.034) ng/mL Total Protein (6.3-8.2) g/dL Albumin (3.5-5.0) g/dL Urine Color Yellow Urine Appearance Cloudy H (Clear) Urine pH 6.5 (5.0-8.0) Ur Specific Bruner 1.012 (1.001-1.035) Urine Protein Negative (Negative) Urine Glucose (UA) Negative (Negative) Urine Ketones Negative (Negative) Urine Blood Negative (Negative) Urine Nitrite Negative (Negative) Urine Bilirubin Negative (Negative) Urine Urobilinogen <2.0 (<2.0) mg/dL Ur Leukocyte Esterase Large H (Negative) Urine RBC 2 (0-5) /hpf Urine WBC 25 H (0-5) /hpf Ur Squamous Epith Cells 4 (0-4) /hpf Amorphous Sediment Few H (None) /hpf Urine Bacteria Occasional H (None) /hpf Urine Mucus Rare H (None) /hpf Disposition Clinical Impression: Urinary tract infection Disposition: HOME SELF-CARE Condition: Stable Instructions (If sedation given, give patient instructions): Urinary Tract Infection in Women (ED) Additional Instructions: Please return to the Emergency Department if symptoms worsen or any other concerns. Prescriptions: Sulfamethox-Tmp 800-160Mg [Bactrim Ds] 1 each PO Q12HR #14 tab Is patient prescribed a controlled substance at d/c from ED?: No Referrals: Schuyler Barger MD [Primary Care Provider] - 1-2 days Time of Disposition: 15:15
[2022-09-21 12:57] LABS: Albumin 4.2 g/dL (3.5-5.0); Calcium 9.8 mg/dL (8.4-10.2); Total Bilirubin 0.6 mg/dL (0.2-1.3); Total Protein 7.2 g/dL (6.3-8.2)
[2022-09-21 13:08] LABS: Basophils % (A) 0 %; Eosinophils # (A) 0.3 k/uL (0-0.7); Eosinophils % (A) 3 %; HCT 38.4 % (34.0-46.0); HGB 12.8 gm/dL (11.4-16.0); Lymphocytes # (A) 2.3 k/uL (1.0-4.8); Lymphocytes % (A) 28 %; MCH 31.1 pg (25.0-35.0); MCHC 33.2 g/dL (31.0-37.0); Mean Platelet Volume 8.9; Monocytes # (A) 0.4 k/uL (0-1.0); Monocytes % (A) 5 %; Neutrophils # (A) 5.2 k/uL (1.3-7.7); Neutrophils % (A) 63 %; Platelet Count 210 k/uL (150-450); RBC 4.11 m/uL (3.80-5.40); RDW 14.1 % (11.5-15.5); WBC 8.2 k/uL (3.8-10.6)
[2022-09-21 13:12] LABS: MCV 93.5 fL (80.0-100.0)
[2022-09-21 13:23] LABS: Partial Thromboplastin Time 22.9 sec (22.0-30.0); Prothrombin Time 10.2 sec (9.0-12.0)
--- NOTE | 2022-09-21 14:01 | XR ---
EXAMINATION TYPE: XR chest 2V DATE OF EXAM: 09/21/2022 COMPARISON: 05/14/2022 TECHNIQUE: PA and lateral views submitted. HISTORY: Weakness FINDINGS: The lungs are clear and there is no pneumothorax, pleural effusion, or focal pneumonia. Heart size normal and no overt failure. Osseous structures demonstrate hypertrophic and degenerative changes of the spine. Atherosclerotic change aorta. Hypertrophic and degenerative change of the spine. IMPRESSION: 1. No acute process.
[2022-09-21 14:12] LABS: Amorphous Sediment,Urine Few /hpf; Appearance,Urine Cloudy (Clear); Bacteria,Urine Occasional /hpf; Bilirubin,Urine Negative (Negative); Blood,Urine Negative (Negative); Color,Urine Yellow; Glucose,Urine (UA) Negative (Negative); Ketones,Urine Negative (Negative); Leukocyte Esterase,Urine Large (Negative); Mucus,Urine Rare /hpf; Nitrite,Urine Negative (Negative); PH, Urine 6.5 (5.0-8.0); Protein,Urine Negative (Negative); RBC,Urine 2 /hpf (0-5); Specific Gravity,Urine 1.012 (1.001-1.035); Squamous Epithelial Cell,Urine 4 /hpf (0-4); Urobilinogen,Urine <2.0 mg/dL (<2.0); WBC,Urine 25 /hpf (0-5)
[2022-09-21] MEDS ORDERED: cefTRIAXone IN SWFI 1,000 MG/10 ML SYRINGE IVP STA (14:16)
[2022-09-21] MEDS ORDERED: hydrALAZINE HCL 20 MG/ML 1 ML VIAL IVP STA (14:16)
[2022-09-21 15:44] VITALS: BP 120/62; PULSE 64; RESP 20
== END 2022-09-21 15:45 | disposition home or self-care (01) ==
LOC: EC 11:12
DX: N39.0 Urinary tract infection, site not specified (principal); E11.9 Type 2 diabetes mellitus without complications; E78.5 Hyperlipidemia, unspecified; I25.2 Old myocardial infarction; I10 Essential (primary) hypertension; M19.90 Unspecified osteoarthritis, unspecified site; E07.9 Disorder of thyroid, unspecified; Z87.891 Personal history of nicotine dependence; Z79.82 Long term (current) use of aspirin; Z79.890 Hormone replacement therapy; Z79.899 Other long term (current) drug therapy
CPT/HCPCS: 36415; 93005; 80053; 83605; 84484; 85025; 85610; 85730; 81001; 71046; 99285; 96374; 96375; J0360; J0696

== ENCOUNTER → 2022-11-09 | Outpatient (CLI) | payer MEDICARE ==
[2022-11-09 18:11] LABS: BUN/Creat Ratio 16.73 Ratio (12.00-20.00); Blood Urea Nitrogen 18.4 mg/dL (9.0-27.0); Chloride 105 mmol/L (96-109); Chol/HDL Ratio 2.61 Ratio; Glucose 110 mg/dL (70-110); LDL Cholesterol,Calculated 70.3 mg/dL (0.0-131.0); Potassium 4.5 mmol/L (3.5-5.5); Sodium 140 mmol/L (135-145)
[2022-11-09 18:12] LABS: ALT 48 U/L (8-44); AST 35 U/L (13-35); Albumin 4.3 d/dL (3.8-4.9); Albumin/Globulin Ratio 1.65 Ratio (1.60-3.17); Alkaline Phosphatase 57 U/L (41-126); Calcium 9.6 mg/dL (8.7-10.3); Carbon Dioxide 19.4 mmol/L (21.6-31.8); Globulin 2.6 d/dL (1.6-3.3); Total Bilirubin 0.4 mg/dL (0.3-1.2); Total Protein 6.9 d/dL (6.2-8.2)
== END | disposition home or self-care (01) ==
LOC: LABWHC1 08:56
PROVIDERS: ATTEND Internal Medicine Interventional Cardiology
DX: E78.2 Mixed hyperlipidemia (principal)
CPT/HCPCS: 36415; 80053; 80061

== ENCOUNTER → 2023-05-03 | Outpatient (CLI) | payer MEDICARE ==
[2023-05-03 18:35] LABS: ALT 18 U/L (8-44); AST 24 U/L (13-35); Chol/HDL Ratio 2.54 Ratio; LDL Cholesterol,Calculated 55.2 mg/dL (0.0-131.0)
== END | disposition home or self-care (01) ==
LOC: LABWHC1 10:50
PROVIDERS: ATTEND Internal Medicine Interventional Cardiology
DX: E78.2 Mixed hyperlipidemia (principal)
CPT/HCPCS: 36415; 80061; 84450; 84460

== ENCOUNTER → 2023-07-20 | Outpatient (CLI) | payer MEDICARE ==
--- NOTE | 2023-07-20 16:11 | BD ---
EXAMINATION TYPE: Axial Bone Density DATE OF EXAM: 07/20/2023 CLINICAL HISTORY: 82 years old Female. ICD-10 CODE: M85.851 DISORDER OF BONE Height: 60 Weight: 179.9 FRAX RISK QUESTIONS: Alcohol (3 or more units per day): no Family History (Parent hip fracture): no Glucocorticoids (More than 3mos): no History of Fracture in Adulthood: no Secondary Osteoporosis: 1. Type 1 Diabetes: no 2. Hyperthyroidism: no 3. Menopause before 45: no 4. Malnutrition: no 5. Chronic liver disease: no Rheumatoid Arthritis: no Current Tobacco Use: no RISK FACTORS HISTORY OF: Hip Fracture (Right/Left): no Spine Fracture: no History of Wrist Fracture: no Surgery to Spine/Hip(right/left)/Wrist (right/left): no MEDICATIONS: Thyroid Medications: no Osteoporosis Medications:no EXAM MEASUREMENTS: Bone mineral densitometry was performed using the [employer] System. Bone mineral density as measured about the Lumbar spine is: ----- L1-L4(G/cm2): 1.143 T Score Values are as follows: ----- L1: -0.7 ----- L2: -0.9 ----- L3: 1.2 ----- L4: -1.0 ----- L1-L4: -0.3 Z Score Values are as follows: ----- L1: 0.6 ----- L2: 0.4 ----- L3: 2.5 ----- L4: 0.3 ----- L1-L4: 1.0 Bone mineral density has: increased 17.8 % since study of: 03/30/2006 Bone mineral density about the R hip (g/cm2): 0.815 Bone mineral density about the L hip (g/cm2): 0.797 T Score values are as follows: -----R Neck: -1.6 -----L Neck: -2.0 -----R Total: -15 -----L Total: -1.7 Z Score values are as follows: -----R Neck: 0.3 -----L Neck: -0.1 -----R Total: 0.2 -----L Total: 0.0 Bone mineral density has: decreased -15.5 % since study of: 03/30/2006 FRAX%s: The graph provided illustrates a 14.5 % chance for a major osteoporotic fx and a 4.2% chance for the hips probability for fx in 10 years time. IMPRESSION: Osteopenia (T Score between -2.5 and -1). There is slightly increased risk of fracture and the patient may be considered for treatment. Re-Screen 2-5 years. NOTE: T-SCORE=SD OF THE YOUNG ADULT MEAN.
== END | disposition home or self-care (01) ==
LOC: RADMAMWWP 11:18
PROVIDERS: ATTEND Internal Medicine
DX: Z12.31 Encounter for screening mammogram for malignant neoplasm of breast (principal); Z13.820 Encounter for screening for osteoporosis; M85.89 Other specified disorders of bone density and structure, multiple sites
CPT/HCPCS: 77063; 77067; 77080

== ENCOUNTER → 2023-11-02 | Outpatient (CLI) | payer MEDICARE ==
[2023-11-02 17:28] LABS: ALT 22 U/L (8-44); AST 21 U/L (13-35); Albumin 4.3 g/dL (3.8-4.9); Albumin/Globulin Ratio 1.65 Ratio (1.60-3.17); Alkaline Phosphatase 83 U/L (41-126); BUN/Creat Ratio 16.27 Ratio (12.00-20.00); Blood Urea Nitrogen 17.9 mg/dL (9.0-27.0); Carbon Dioxide 22.6 mmol/L (21.6-31.8); Chloride 105 mmol/L (96-109); Chol/HDL Ratio 2.68 Ratio; Globulin 2.6 g/dL (1.6-3.3); Glucose 110 mg/dL (70-110); LDL Cholesterol,Calculated 70.8 mg/dL (0.0-131.0); Potassium 4.5 mmol/L (3.5-5.5); Sodium 142 mmol/L (135-145); Total Bilirubin 0.3 mg/dL (0.3-1.2); Total Protein 6.9 g/dL (6.2-8.2)
== END | disposition home or self-care (01) ==
LOC: LABWHC1 10:43
PROVIDERS: ATTEND Nurse Practitioner Adult Health
DX: I10 Essential (primary) hypertension (principal); E78.2 Mixed hyperlipidemia
CPT/HCPCS: 36415; 80053; 80061

== ENCOUNTER → 2024-05-04 | Outpatient (CLI) | payer MEDICARE ==
[2024-05-04 19:02] LABS: ALT 17 U/L (8-44); AST 21 U/L (13-35); Albumin 4.3 g/dL (3.8-4.9); Albumin/Globulin Ratio 1.59 Ratio (1.60-3.17); Alkaline Phosphatase 77 U/L (41-126); Blood Urea Nitrogen 20.9 mg/dL (9.0-27.0); Calcium 10.2 mg/dL (8.7-10.3); Carbon Dioxide 22.1 mmol/L (21.6-31.8); Chloride 109 mmol/L (96-109); Chol/HDL Ratio 2.88 Ratio; Globulin 2.7 g/dL (1.6-3.3); Glucose 108 mg/dL (70-110); LDL Cholesterol,Calculated 56.9 mg/dL (0.0-131.0); Potassium 4.4 mmol/L (3.5-5.5); Sodium 143 mmol/L (135-145); Total Bilirubin 0.5 mg/dL (0.3-1.2)
== END | disposition home or self-care (01) ==
LOC: LABWHC1 11:13
PROVIDERS: ATTEND Internal Medicine Interventional Cardiology
DX: E78.2 Mixed hyperlipidemia (principal)
CPT/HCPCS: 36415; 80053; 80061

== ENCOUNTER → 2024-07-25 | Outpatient (CLI) | payer MEDICARE ==
--- NOTE | 2024-07-25 12:29 | MM ---
Reason for Exam: Screening (asymptomatic). Last screening mammogram was performed 12 month(s) ago. Patient History: Menarche at age 13. First Full-Term at age 18. Hysterectomy at age 36. Postmenopausal. Estrogen, from age 37 until age 62. 2003, Excisional Biopsy on the Right side. 02/20/2004, Stereotactic Core Biopsy on the Right side. Mother had breast cancer, age 30. Risk Values: Shannon 5 year model risk: 4.4%. NCI Lifetime model risk: 5.8%. Prior Study Comparison: 04/23/2020 Right Diagnostic Mammogram, [facility]. 03/09/2021 Bilateral Diagnostic Mammogram, [facility]. 07/20/2023 Bilateral MG 3D screening mammo w/cad, [facility]. Tissue Density: The breasts are heterogeneously dense, which may obscure small masses. Findings: Analyzed By CAD. Right breast: Architectural distortion 6.8 cm nipple lateral aspect on CC view upper aspect on the lateral view. May have been present on prior's. Ultrasound recommended for completeness. Left breast: There is no suspicious group of microcalcifications or new suspicious mass. Overall Assessment: Incomplete: need additional imaging evaluation, BI-RAD 0 Management: Diagnostic Breast Ultrasound of the left breast. [facility] will attempt to contact patient to return for supplemental views and ultrasound if indicated. Patient should continue monthly self-breast exams. A clinical breast exam by your physician is recommended on an annual basis. This exam should not preclude additional follow-up of suspicious palpable abnormalities. Note on Shannon scores and lifetime risk: 1. A Shannon score greater than 3% is considered moderate risk. If this is the case, consider specialist referral to assess eligibility for a risk reducing agent. 2. If overall lifetime risk for the development of breast cancer is 20% or higher, the patient may qualify for future screening with alternating mammogram and breast MRI. [facility], , 07/25/2024 12:26 PM. Electronically signed and approved by: Octavio Mendiola DO
== END | disposition home or self-care (01) ==
LOC: RADMAMWWP 11:22
PROVIDERS: ATTEND Internal Medicine
DX: Z12.31 Encounter for screening mammogram for malignant neoplasm of breast (principal); R92.333 Mammographic heterogeneous density, bilateral breasts; Z78.0 Asymptomatic menopausal state; Z80.3 Family history of malignant neoplasm of breast
CPT/HCPCS: 77063; 77067

== ENCOUNTER → 2024-10-19 | Outpatient (CLI) | payer MEDICARE ==
--- NOTE | 2024-10-19 13:03 | XR ---
EXAMINATION TYPE: XR chest 2V DATE OF EXAM: 10/19/2024 11:39 AM COMPARISON: 09/21/2022 CLINICAL INDICATION: Female, 84 years old with history of R09.89 OTH SYMPTOMS AND SIGNS INVOLVING THE CIRC A, cough and shortness of breath TECHNIQUE: Frontal and lateral views FINDINGS: Heart upper limits of normal in size. Mild hyperinflation. Mild interstitial prominence. Tiny atelect asis left mid and lower lung. No jacques consolidation or pleural effusion. Atherosclerotic calcificati ons throughout the thoracic aorta. IMPRESSION: Correlate for underlying COPD. Otherwise, no definite acute process. [facility], Workstation: [facility], 10/19/2024 1:00 PM
== END | disposition home or self-care (01) ==
LOC: RADXRMAIN 11:14
PROVIDERS: ATTEND Internal Medicine
DX: R09.89 Other specified symptoms and signs involving the circulatory and respiratory systems (principal)
CPT/HCPCS: 71046

== ENCOUNTER → 2024-11-02 | Outpatient (CLI) | payer MEDICARE ==
[2024-11-02 15:45] LABS: ALT 18 U/L (8-44); AST 21 U/L (13-35); Albumin 4.4 g/dL (3.8-4.9); Albumin/Globulin Ratio 1.69 Ratio (1.60-3.17); Alkaline Phosphatase 76 U/L (41-126); BUN/Creat Ratio 16.55 Ratio (12.00-20.00); Blood Urea Nitrogen 18.2 mg/dL (9.0-27.0); Calcium 9.9 mg/dL (8.7-10.3); Carbon Dioxide 25.5 mmol/L (21.6-31.8); Chloride 106 mmol/L (96-109); Chol/HDL Ratio 3.05 Ratio; Globulin 2.6 g/dL (1.6-3.3); Glucose 107 mg/dL (70-110); LDL Cholesterol,Calculated 57.9 mg/dL (0.0-131.0); Potassium 4.3 mmol/L (3.5-5.5); Sodium 143 mmol/L (135-145); Total Bilirubin 0.5 mg/dL (0.3-1.2)
== END | disposition home or self-care (01) ==
LOC: LABWHC1 10:53
PROVIDERS: ATTEND Internal Medicine Interventional Cardiology
DX: I10 Essential (primary) hypertension (principal); E78.2 Mixed hyperlipidemia
CPT/HCPCS: 36415; 80053; 80061

== ENCOUNTER → 2024-12-04 | Outpatient (CLI) | payer MEDICARE ==
[2024-12-04 20:00] LABS: HCT 39.6 % (37.2-46.3); HGB 12.6 g/dL (12.0-15.0); MCH 30.6 pg (27.0-32.0); MCHC 31.8 g/dL (32.0-37.0); MCV 96.1 FL (80.0-97.0); NRBC Per 100 WBC 0 X 10*3/uL (0.00-0.01); Platelet Count 202 X 10*3/uL (140-440); RBC 4.12 X 10*6/uL (4.10-5.20); RDW 13.0 % (11.5-14.5); WBC 8.55 X 10*3/uL (4.50-10.00)
[2024-12-04 20:01] LABS: Anion Gap 12.60 mmol/L (4.00-12.00); BUN/Creat Ratio 21.67 Ratio (12.00-20.00); Blood Urea Nitrogen 19.5 mg/dL (9.0-27.0); Calcium 9.7 mg/dL (8.7-10.3); Carbon Dioxide 21.4 mmol/L (21.6-31.8); Chloride 106 mmol/L (96-109); Glucose 90 mg/dL (70-110); Potassium 4.3 mmol/L (3.5-5.5); Sodium 140 mmol/L (135-145)
[2024-12-04 22:45] LABS: NT-Pro-B-Type Natriuretic Pept 331 pg/mL (0-450)
== END | disposition home or self-care (01) ==
LOC: LABWHC1 12:33
PROVIDERS: ATTEND Internal Medicine Interventional Cardiology
DX: R06.02 Shortness of breath (principal)
CPT/HCPCS: 36415; 80048; 83880; 85027